=== PATIENT | female | born 1980 | race Caucasian/White ===

== ENCOUNTER → 2018-07-23 09:25 | Outpatient (CLI) | payer OTHER, SELFPAY ==
[2018-07-23 09:58] LABS: Absolute Lymphocyte Count 1.74 X10^3/ul (0.83-4.51); Basophil# 0.02 X10^3/uL; Basophil% 0.2 % (0-1); Eosinophil# 0.22 X10^3/uL; Eosinophils% 2.6 % (0-5); Hematocrit 39.9 % (37-47); Hemoglobin 12.9 g/dl (12.0-15.0); Lymphocyte # 1.74 X10^3/ul (4.0); Lymphocyte % 20.4 % (19-41); Mean Corp Hgb Conc 32.3 g/gl (32-36); Mean Corpuscular Hgb 27.9 pg (27.0-32.0); Mean Corpuscular Volume 86.4 fL (81-99); Mean Platelet Vol. 9.9 fl (6.2-12.0); Monocyte# 0.58 X10^3/uL; Monocyte% 6.8 % (0-10); Neutrophil # 5.95 X10^3/uL (2.7-7.7); Neutrophil % 69.9 % (47-70); Platelet Count 230 K/mm3 (150-450); RBC Distribution Width CV 15.5 % (11.6-14.6); RBC Distribution Width SD 49.1 fl (35.1-43.9); Red Blood Count 4.62 M/mm3 (4.2-5.4); White Blood Count 8.5 K/mm3 (4.4-11.0)
[2018-07-23 09:59] LABS: POSITIVE COUNT NO; POSITIVE DIFFERENTIAL NO; POSITIVE MORPHOLOGY NO
[2018-07-23 10:21] LABS: Glucose Challenge Gest 1H 50g 173 mg/dL (70-140)
[2018-07-23 14:53] LABS: Chlamydia Trachomatis by PCR Negative (Negative); Neisserai gonorrhoeae by PCR Negative (Negative); Probe Check PASS; Sample Adequacy Control PASS; Specimen Processing Control PASS
[2018-07-24 11:25] LABS: HEPATITIS B SURFACE AG Negative (Negative)
[2018-07-24 13:02] LABS: HIV - WCH Non-Reactive (Nonreactive); Rubella IgG 99.4 IU/mL
[2018-07-26 02:29] LABS: Rapid Plasmin Reagin (RPR) NONREACTIVE (NONREACTIVE)
[2018-07-26 13:00] LABS: HPV APTIMA, High Risk Negative (Negative)
== END ==
PROVIDERS: Visit Provider Obstetrics & Gynecology
DX: Z34.90 Encounter for supervision of normal pregnancy, unspecified, unspecified trimester (principal); Z12.4 Encounter for screening for malignant neoplasm of cervix
CPT/HCPCS: 36415; 82950; 85025; 86592; 86703; 86762; 86850; 86900; 87086; 87340; 87491; 87591; 88175; G0145

== ENCOUNTER → 2018-08-09 07:53 | Outpatient (CLI) | payer OTHER, SELFPAY ==
--- NOTE | 2018-08-09 07:55 | US_ITS ---
STUDY: FIRST TRIMESTER OBSTETRICAL ULTRASOUND REASON FOR EXAM: Female, 38 years old. dating. LMP: May 25, 2018. TECHNIQUE: Transvaginal PRIOR ULTRASOUND: None. FINDINGS: There is visualization of a single gestational sac in a normal intrauterine position. The mean sac diameter (MSD) measures 3.9 mm, indicating an estimated gestational age (EGA) of 9 weeks, 3 days. The gestational sac shape is within normal limits. There is a visualized yolk sac. The yolk sac measures 3.8 mm. The placenta is non-visualized. There is visualization of a live embryo. The crown-rump length (CRL) measures 2.25 cm, indicating an estimated gestational age (EGA) of 9 weeks, 0 days. There is demonstrated cardiac activity with a heart rate of 164 bpm. The estimated gestation age (EGA) by LMP is 10 weeks, 6 days. The estimated date of delivery (ANTONIA) by LMP is March 01, 2019. The estimated gestation age (EGA) by US is 9 weeks, 2 days. The estimated date of delivery (ANTONIA) by US is March 12, 2019. The uterus measures 10.4 cm x 8.5 cm by 5.9 cm. There is no demonstrated uterine fibroid. The cervix is closed. A small hypoechoic region is seen adjacent to the gestational sac suggestive of a small subchorionic bleed. The right ovary measures 3.4 cm x 2.1 cm x 2.0 cm. There is no right ovarian cyst. There is no visualized right adnexal mass or complex lesion. The left ovary measures 2.7 cm x 1.6 cm x 1.5 cm. There is no left ovarian cyst. There is no visualized left adnexal mass or complex lesion. There is no fluid in the cul de sac. US/Transvaginal w/Preg US IMPRESSION: Single live intrauterine gestation with a mean gestational age of 9 weeks. Findings suggestive of a small subchorionic bleed. Electronically Signed: Jack Daniel MD at 15:50 EDT Tel [phone], Service support ,
== END ==
PROVIDERS: Referring Provider Obstetrics & Gynecology; Visit Provider Obstetrics & Gynecology
DX: Z36.89 Encounter for other specified antenatal screening (principal)
CPT/HCPCS: 76817

== ENCOUNTER → 2018-08-09 08:46 | Outpatient (CLI) | payer OTHER, SELFPAY ==
[2018-08-09 09:31] LABS: Glucose GTT-Gestation. Fasting 97 mg/dL (<105)
[2018-08-09 10:32] LABS: Glucose GTT-Gestational 1 Hr 190 mg/dL (<190)
[2018-08-09 12:41] LABS: Glucose GTT-Gestational 3 Hr 94 L (<145)
[2018-08-09 12:41] LABS: Glucose GTT-Gestational 2 Hr 130 mg/dL (<165)
== END ==
PROVIDERS: Referring Provider Obstetrics & Gynecology; Visit Provider Obstetrics & Gynecology
DX: Z34.90 Encounter for supervision of normal pregnancy, unspecified, unspecified trimester (principal)
CPT/HCPCS: 36415; 82951; 82952

== ENCOUNTER → 2018-08-21 16:06 | Outpatient (CLI) | payer OTHER, SELFPAY ==
[2018-09-16 16:36] VITALS: BMI 42.8
--- OUTSIDE RECORDS SUMMARY | 2018-12-07 00:08 | XMS RPT_ITS ---
:1980 Author Organization OHIP Support Name Relationship Address Phone ELIO MCKEON Unavailable [address] [place] [address] S Unavailable Unavailable Unavailable ELIO MCKEON Unavailable Unavailable Unavailable ELIO MCKEON Unavailable [address] + [address] [place] [address] S Unavailable Unavailable Unavailable ELIO MCKEON Unavailable [address] + [address] [place] [address] S Unavailable Unavailable Unavailable ELIO MCKEON Unavailable [address] + [address] [place] [address] S Unavailable Unavailable Unavailable ELIO MCKEON Unavailable [address] + [address] [place] [address] S Unavailable Unavailable Unavailable ELIO MCKEON Unavailable [address] + [address] [place] [address] S Unavailable Unavailable Unavailable ELIO MCKEON Unavailable [address] + [address] [place] [address] S Unavailable Unavailable Unavailable ELIO MCKEON Unavailable [address] + [address] [place] [address] S Unavailable Unavailable Unavailable ELIO MCKEON Unavailable [address] + [address] [place] [address] S Unavailable Unavailable Unavailable ELIO MCKEON Unavailable [address] + [address] [place] [address] S Unavailable Unavailable Unavailable Care Team Providers Name Role Phone KEARA STILES Attending Unavailable BRE ELLIOTT Referring Unavailable NO PRIMARY CARE, Primary Care Unavailable Marry Patiño Attending Unavailable Primay Care Physicia, No Referring Unavailable Bre Elliott Attending Unavailable Primay Care Physicia, No Referring Unavailable Marcanthony, Bre Attending Unavailable Marcanthony, Bre Referring Unavailable Primay Care Physicia, No Primary Care Unavailable Marcanthony, Bre Attending Unavailable Marcanthony, Bre Referring Unavailable Primay Care Physicia, No Primary Care Unavailable Marcanthony, Bre Attending Unavailable Marcanthony, Bre Referring Unavailable Primay Care Physicia, No Primary Care Unavailable Amilcar Steele Attending Unavailable Primay Care Physicia, No Referring Unavailable Marcanthony, Bre Attending Unavailable Primay Care Physicia, No Referring Unavailable Marcanthony, Bre Attending Unavailable Marcanthony, Bre Referring Unavailable Primay Care Physicia, No Primary Care Unavailable Marcanthony, Bre Attending Unavailable Primay Care Physicia, No Referring Unavailable [place], Marry Attending Unavailable Primay Care Physicia, No Primary Care Unavailable PROBLEMS PROBLEMS DATE TYPE CONDITION / CODE ATTENDING STATUS SOURCE 10/24/2018 Unknown O09.91 - [place] evans Active [place] Supervision of [facility] high risk [facility] , Repository unspecified, first trimester / O09.91(ICD-10) 10/24/2018 Unknown Z3A.20 - 20 weeks Kaylyn, Marry Active [place] gestation of [facility] / Hospital Z3A.20(ICD-10) Repository 10/24/2018 Unknown O99.810 - Abnormal KaylynMarry evans Active [place] glucose [facility] / Repository O99.810(ICD-10) 10/24/2018 Unknown Z36.9 - Encounter [place] evans Active [place] for [facility] screening, Hospital unspecified / Repository Z36.9(ICD-10) 10/24/2018 Unknown Z68.41 - Body mass Kaylyn Marry Active [place] index (BMI) [facility] 40.0-44.9, adult / Hospital Z68.41(ICD-10) Repository 09/16/2018 Unknown Z3A.12 - 12 weeks Marcanthony, Active [place] gestation of [facility] / Hospital Z3A.12(ICD-10) Repository 08/13/2018 Unknown Z34.90 - Encounter Marcanthony, Active [place] for supervision of [facility] normal , Hospital unspecified, Repository unspecified trimester / Z34.90(ICD-10) 08/09/2018 Unknown N92.6 - Irregular Marcanthony, Active [place] menstruation, [facility] unspecified / Hospital N92.6(ICD-10) Repository 07/23/2018 Unknown Z3A.08 - 8 weeks Cristian, Active [place] gestation of [facility] / Hospital Z3A.08(ICD-10) Repository PROCEDURES PROCEDURES No Procedure Records FoundRESULTS RESULTS ADJUSTMENT CLERK OFFICE VISIT Observed: 10/24/2018 Status: F Source: [place] REPORT 11:08 AM [facility] REPOSITORY [facility] [address] [place] [address] OFFICE VISIT Date of Service: 10/24/18 MR#: [id number] Acct: [id number] Name: ERASMO MCKEON Rep #: [id number] : 1980 Provider: SONJA Patiño Age/Sex: 38/F Location: [facility] Status: Signed Intake Vital Signs10/24/18 Height 5 ft 10/24/18 Weight: 220 lb 10/24/18 Body Mass Index (BMI) 43.0 10/24/18 Blood Pressure 118/80 Intake Visit Reasons: 18 weeks Chief Complaint: est ob Well Service Floorperson Required: No Is patient in pain?: No Allergies No Known Allergies Allergy (Verified 10/24/18 10:35) Medications vitamin#30 30 mg iron-10 mg iron-folic acid 1 mg- omg3 capsule cap PO cap 09/16/18 [History Confirmed 10/24/18] Last Menstral Period: 05/25/18 Zika: Zika virus screening: Negative : No PFSH PFSH Medical History benign neck tumor (Acute) Surgical History History of tonsillectomy (Acute) Status post wrist surgery (Acute) Family History Unknown Cancer skin non hodgkins lymphoma lung Grandfather Diabetes Other Hypertension Social History Smoking Status: Never smoker alcohol intake: never substance use type: does not use caffeine: Yes what type of physical activity do you participate in: walking seatbelt use: always do you feel safe at home: Yes additional social history: 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 OB Visit ANTONIA Calculator Estimated Delivery Date 03/12/19 Based on Ultrasound Date 08/09/18 Current WG 20w 1d Number 1 Expected Delivery Route/Plan Specific Issue/Plans flu vaccine: declined tdap vaccine: [] rhogam: [] LARC form signed: [] labor support person: Stephane pain management: [] cut cord/dad catch: [] : [] PP control planned: [] discussed possible routes of delivery and associated risks: [] special requests: [] Initial Weight: 218 lb Date Weight BP Urine PrFHR FuHt Pres MoCTX DilationFetal StVisit NoProviderComments E ot v te [place] G Effac lucose ed Visit Notes Visit Date: 10/24/18 No VB, LOF. Doing well. Marry Patiño NP-C on 10/24/18 Visit Date: 09/16/18 n ovb cramping Bre Elliott MD on 09/16/18 Visit Date: 08/21/18 no vb cramping. Bre Elliott MD on 08/21/18 ACOG First Trimester First Trimester: Desire for , Alcohol, Tobacco Cessation, Illicit/Recreational Drug/Substance Use, Intimate Partner Violence, Barriers to care, Unstable Housing, Communication Barriers, Environmental/Work Hazards, Anticipated Course of Care, Toxoplasmosis Precations, Use of Any medications, Sexual activity, Exercise, Dental Care, Sauna/Hot tub use, Seat Belt use, Childbirth classes/Hospital facilities, , Travel, Indications for US and Screening for Aneuploidy Diagnostics Diagnostics Labs Blood Type A POSITIVE 07/23/18 Antibody Screen NEGATIVE 07/23/18 Hct 39.9 % (37-47) 07/23/18 Hgb 12.9 g/dl (12.0-15.0) 07/23/18 Pap Smear Negative 02/13/17 Obstetrics Ultrasound 08/09/18 Rubella IgG Antibody 99.4 IU/mL 07/23/18 RPR NONREACTIVE (NONREACTIVE) 07/23/18 Hep Bs Antigen Negative (Negative) 07/23/18 Chlam trachomat DNA PCR Negative (Negative) 07/23/18 N.gonorrhoeae DNA (PCR) Negative (Negative) 07/23/18 Glucose 1 Hr 50 gm 173 mg/dL (70-140) H 07/23/18 Miscellaneous Test 09/27/18 Details: HIV: Urine Culture: Sequential Screen: NIPT Screen: Results [id number] Office Urine Glucose Negative Last Edit by Emily Jin on 10/24/18 10:42 Office Urine Protein Negative Last Edit by Emily Jin on 10/24/18 10:42 Assessment AND Plan Problems 1. Supervision of high risk in first trimester O09. PRR ANTONIA 03/12/19 boy [place] Elio 2. 20 weeks gestation of Z3A.20 NIPT low risk. carrier screening declined. plan NTD screening. 3. Advanced maternal age (AMA) in genetic counseling discussed, plan growth scan at 36 weeks 4. Abnormal glucose affecting O99.810 normal 3 hour gtt. 1 elevated value. she is wanting to intermittently check blood sugars. 5. screening encounter Z36.9 NIPT low risk 6. BMI 40.0-44.9, adult Z68.41 encouraged weight loss. growth us after 32 weeks, nsts after 36 Plan Orders placed: none Completed MFM anatomy US today Reviewed of labor precautions, movement/kick counts ACOG trimester education reviewed and updated See problem list details for updated plan of care Gestational age appropriate handout given RTO: 4 weeks Orders Orders: Coding Level of Care Code OB Routine Diagnoses Supervision of high risk in first trimester O Trimester: first trimester 20 weeks gestation of Z3A.20 Weeks of gestation: 20 weeks Advanced maternal age (AMA) in Abnormal glucose affecting O99.810 screening encounter Z36.9 BMI 40.0-44.9, adult Z68.41 10/24/18 1108 <Electronically signed by Marry MIRANDA> Date Marry MIRANDA Cosigner Signature: Date (if applicable) CC: MISCELLANEOUS LAB Collected: 09/27/2018 Status: F Source: [place] PROCEDURE 5:53 PM [facility] REPOSITORY Order Comment: Comments: [id number] MSAFP Test(s) Ordered: [id number] MSAFP TYPE CODE TESTS RESULT OUT OF RANGE REFERENCE UNITS LAB L801.1541 Normal [facility] [place] Result Comment: TEST RESULT UNITS REFERENCE INTERVAL AFP, Serum, Open Spina Bifida Results Report Test Results: *Screen Negative* Gest. Age on Collection Date 16.3 weeks Gestat. Age Based On Ultrasound 16.3 on 09/27/2018 Recalculations are not recommended when gestational dating by LMP and ultrasound are within 10 days. [age] ANTONIA [age] yr Race Weight 219 lbs Insulin Dep Diabetes No Multiple Gestation No AFP Value 27.6 ng/mL AFP MoM 1.02 OSBR Risk 1 [place] [id number] Interpretation Interpretation: Screen Negative This result is screen negative for OSB. The AFP MoM calculated is based on the gestational age provided. MS-AFP can identify up to 80% of open neural tube defects. Closed neural tube defects and some open defects may not be detected by this test. This test does not screen for Down Syndrome or Trisomy 18. If screening for Down Syndrome or Trisomy 18 is desired, contact Genetic Customer Services to discuss available options. The [employer] recommends amniocentesis be offered to women age 35 and older. Comment: Annie Cole, Ph.D., [facility] Principal Genetics Casing Trimmer References: Available Upon Request. Multiples Of Median Cutoffs For AFP Elevations Partida 2.5 Black 2.8 IDD 2.0 Twins 4.5 Abbreviation Definitions IDD - Insulin Dep Diabetes OSBR - Open Spina Bifida Risk For further inquiries contact [facility] Genetics Services at [phone]. TESTING PERFORMED AT [facility]. ORIGINAL REPORT ON FILE IN LAB CONTAINS ADDITIONAL TEST SITE INFORMATION. Performed By: #### L801.1541 #### [facility] [address] [place], [address] ADJUSTMENT CLERK OFFICE VISIT Observed: 09/16/2018 Status: F Source: [place] REPORT 5:00 PM [facility] REPOSITORY [facility] [address] [place] [address] OFFICE VISIT Date of Service: 09/16/18 MR#: [id number] Acct: [id number] Name: ERASMO MCKEON Rep #: [id number] : 1980 Provider: Bre Elliott MD Age/Sex: 38/F Location: [facility] Status: Signed Intake Vital Signs09/16/18 Height 5 ft 09/16/18 Weight: 219 lb 4 oz 09/16/18 Body Mass Index (BMI) 42.8 09/16/18 Blood Pressure 102/80 Intake Visit Reasons: OB Chief Complaint: est ob Well Service Floorperson Required: No Is patient in pain?: No Allergies No Known Allergies Allergy (Verified 09/16/18 16:36) Medications vitamin#30 30 mg iron-10 mg iron-folic acid 1 mg- omg3 capsule cap PO cap 09/16/18 [History Confirmed 09/16/18] Last Menstral Period: 05/25/18 Zika: Zika virus screening: Negative : No PFSH PFSH Medical History benign neck tumor (Acute) Surgical History History of tonsillectomy (Acute) Status post wrist surgery (Acute) Family History Unknown Cancer skin non hodgkins lymphoma lung Grandfather Diabetes Other Hypertension Social History Smoking Status: Never smoker alcohol intake: never substance use type: does not use caffeine: Yes what type of physical activity do you participate in: walking seatbelt use: always do you feel safe at home: Yes additional social history: 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 OB Visit ANTONIA Calculator Estimated Delivery Date 03/12/19 Based on Ultrasound Date 08/09/18 Current WG 14w 5d Number 1 Expected Delivery Route/Plan Specific Issue/Plans flu vaccine: declined tdap vaccine: [] rhogam: [] LARC form signed: [] labor support person: [] pain management: [] cut cord/dad catch: [] : [] PP control planned: [] discussed possible routes of delivery and associated risks: [] special requests: [] Initial Weight: 218 lb Date Weight BP Urine PrFHR FuHt Pres MoCTX DilationFetal StVisit NoProviderComments E ot v te [place] G Effac lucose ed Visit Notes Visit Date: 09/16/18 n ovb cramping Bre Elliott MD on 09/16/18 Visit Date: 08/21/18 no vb cramping. Bre Elliott MD on 08/21/18 ACOG First Trimester First Trimester: Desire for , Alcohol, Tobacco Cessation, Illicit/Recreational Drug/Substance Use, Intimate Partner Violence, Barriers to care, Unstable Housing, Communication Barriers, Environmental/Work Hazards, Anticipated Course of Care, Toxoplasmosis Precations, Use of Any medications, Sexual activity, Exercise, Dental Care, Sauna/Hot tub use, Seat Belt use, Childbirth classes/Hospital facilities, , Travel, Indications for US and Screening for Aneuploidy Diagnostics Diagnostics Labs Blood Type A POSITIVE 07/23/18 Antibody Screen NEGATIVE 07/23/18 Hct 39.9 % (37-47) 07/23/18 Hgb 12.9 g/dl (12.0-15.0) 07/23/18 Pap Smear Negative 02/13/17 Obstetrics Ultrasound 08/09/18 Rubella IgG Antibody 99.4 IU/mL 07/23/18 RPR NONREACTIVE (NONREACTIVE) 07/23/18 Hep Bs Antigen Negative (Negative) 07/23/18 Chlam trachomat DNA PCR Negative (Negative) 07/23/18 N.gonorrhoeae DNA (PCR) Negative (Negative) 07/23/18 Glucose 1 Hr 50 gm 173 mg/dL (70-140) H 07/23/18 Miscellaneous Test Pending 08/21/18 Details: HIV: Urine Culture: Sequential Screen: NIPT Screen: Results [email or web address] Office Urine Glucose Negative Last Edit by Emily Jin on 09/16/18 16:41 Office Urine Protein Negative Last Edit by Emily Jin on 09/16/18 16:41 Assessment AND Plan Problems 1. BMI 40.0-44.9, adult Z68.41 encouraged weight loss. growth us after 32 weeks, nsts after 36 2. Abnormal glucose affecting O99.810 normal 3 hour gtt. 1 elevated value. she is wanting to intermittently check blood sugars. 3. Advanced maternal age (AMA) in genetic counseling discussed, plan growth scan at 36 weeks 4. 12 weeks gestation of Z3A.12 NIPT low risk. carrier screening declined. plan NTD screening. 5. Supervision of high risk in first trimester O PRR ANTONIA 03/12/19 boy [place]itra Elio Plan movement and labor precautions reviewed. ACOG trimester education reviewed and updated. see problem list details for updated plan management information and see below for orders placed at this visit. GA appropriate handout given. Orders Orders: Coding Level of Care Code OB Routine Diagnoses BMI 40.0-44.9, adult Z68.41 Abnormal glucose affecting O99.810 Advanced maternal age (AMA) in 12 weeks gestation of Z3A.12 Weeks of gestation: 12 weeks Supervision of high risk in first trimester O. Trimester: first trimester 09/16/18 1700 <Electronically signed by Bre Elliott MD> Date Bre Elliott MD Cosigner Signature: Date (if applicable) CC: ADJUSTMENT CLERK OFFICE VISIT Observed: 08/21/2018 Status: F Source: [place] REPORT 12:12 PM [facility] [address] [place] [address] OFFICE VISIT Date of Service: 08/21/18 MR#: [id number] Acct: [id number] Name: ERASMO MCKEON Rep #: [id number] : 1980 Provider: Bre Elliott MD Age/Sex: 38/F Location: [facility] Status: Signed Intake Vital Signs08/21/18 Height 5 ft 08/21/18 Weight: 218 lb 6 oz 08/21/18 Body Mass Index (BMI) 42.6 08/21/18 Blood Pressure 130/82 H Intake Visit Reasons: OB Chief Complaint: est ob Well Service Floorperson Required: No Is patient in pain?: No Allergies No Known Allergies Allergy (Verified 08/21/18 08:02) Last Menstral Period: 05/25/18 Zika: Zika virus screening: Negative : No PFSH PFSH Medical History benign neck tumor (Acute) Surgical History History of tonsillectomy (Acute) Status post wrist surgery (Acute) Family History Unknown Cancer skin non hodgkins lymphoma lung Grandfather Diabetes Other Hypertension Social History Smoking Status: Never smoker alcohol intake: never substance use type: does not use caffeine: Yes what type of physical activity do you participate in: walking seatbelt use: always do you feel safe at home: Yes additional social history: 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 OB Visit ANTONIA Calculator Estimated Delivery Date 03/12/19 Based on Ultrasound Date 08/09/18 Current WG 11w 0d Number 1 Expected Delivery Route/Plan Specific Issue/Plans flu vaccine: willing tdap vaccine: [] rhogam: [] LARC form signed: [] labor support person: [] pain management: [] cut cord/dad catch: [] : [] PP control planned: [] discussed possible routes of delivery and associated risks: [] special requests: [] Initial Weight: 218 lb Date Weight BP Urine PrFHR FuHt Pres MoCTX DilationFetal StVisit NoProviderComments E ot v te [place] G Effac lucose ed Visit Notes Visit Date: 08/21/18 no vb cramping. Bre Elliott MD on 08/21/18 ACOG First Trimester First Trimester: Desire for , Alcohol, Tobacco Cessation, Illicit/Recreational Drug/Substance Use, Intimate Partner Violence, Barriers to care, Unstable Housing, Communication Barriers, Environmental/Work Hazards, Anticipated Course of Care, Toxoplasmosis Precations, Use of Any medications, Sexual activity, Exercise, Dental Care, Sauna/Hot tub use, Seat Belt use, Childbirth classes/Hospital facilities, , Travel, Indications for US and Screening for Aneuploidy Diagnostics Diagnostics Labs Blood Type A POSITIVE 07/23/18 Antibody Screen NEGATIVE 07/23/18 Hct 39.9 % (37-47) 07/23/18 Hgb 12.9 g/dl (12.0-15.0) 07/23/18 Pap Smear Negative 02/13/17 Obstetrics Ultrasound 08/09/18 Rubella IgG Antibody 99.4 IU/mL 07/23/18 RPR NONREACTIVE (NONREACTIVE) 07/23/18 Hep Bs Antigen Negative (Negative) 07/23/18 Chlam trachomat DNA PCR Negative (Negative) 07/23/18 N.gonorrhoeae DNA (PCR) Negative (Negative) 07/23/18 Glucose 1 Hr 50 gm 173 mg/dL (70-140) H 07/23/18 Miscellaneous Test Pending 08/21/18 Details: HIV: Urine Culture: Sequential Screen: NIPT Screen: Results [id number] Office Urine Glucose Negative Last Edit by Chiquis Stringer on 08/21/18 08:05 Office Urine Protein Negative Last Edit by Chiquis Stringer on 08/21/18 08:05 Assessment AND Plan Problems 1. Abnormal glucose affecting O99.810 normal 3 hour gtt. 1 elevated value. she is wanting to intermittently check blood sugars. 2. Advanced maternal age (AMA) in genetic counseling discussed, plan growth scan at 36 weeks 3. 8 weeks gestation of Z3A.08 NIPT ordered. carrier screening declined. plan NTD screening. 4. Supervision of high risk in first trimester O09.91 PRR ANTONIA 03/12/19 Elio 5. BMI 40.0-44.9, adult Z68.41 encouraged weight loss. growth us after 32 weeks, nsts after 36 Plan ACOG trimester education reviewed and updated. see problem list details for updated plan management information and see below for orders placed at this visit. [place] appropriate handout given. Orders Orders: Coding Level of Care Code OB Routine Diagnoses Abnormal glucose affecting O99.810 Advanced maternal age (AMA) in 8 weeks gestation of Z3A.08 Weeks of gestation: 8 weeks Supervision of high risk in first trimester O09.91 Trimester: first trimester BMI 40.0-44.9, adult Z68.41 08/21/18 1212 <Electronically signed by Bre Elliott MD> Date Bre Elliott MD Cosign Signature: Date (if applicable) CC: MISCELLANEOUS LAB Collected: 08/21/2018 Status: F Source: [place] PROCEDURE 8:57 AM [facility] REPOSITORY Order Comment: Comments: SEND OUT [place] Test(s) Ordered: SEND OUT [place] TYPE CODE TESTS RESULT OUT OF RANGE REFERENCE UNITS LAB L801.1541 Normal [facility] [place] Result Comment: Sent directly to testing facility per ordering physician. @ 10/01/18 1525 MYOUNG Performed By: #### L801.1541 #### [place] [facility] [address] [place], [address] URGENT CARE VISIT Observed: 08/14/2018 Status: F Source: [place] REPORT 6:03 PM [facility] RE[facility] [address] [place] [address] OFFICE VISIT Date of Service: 08/14/18 MR#: [id number] Acct: [id number] Name: ERASMO MCKEON Rep #: [id number] : 1980 Provider: Amilcar LUNDBERG Age/Sex: 38/F [place] [facility] Status: Signed Intake Vital Signs08/14/18 Height 5 ft Intake Visit Reasons: ears clogged up Chief Complaint: Bilateral ear pressure Allergies No Known Allergies Allergy (Unverified 08/14/18 17:34) Medications amoxicillin 500 mg capsule 1,000 mg PO BID 10 Days #40 cap 08/14/18 [Rx Confirmed 08/14/18] Patient : Yes PFSH Medical History benign neck tumor (Acute) Surgical History History of tonsillectomy (Acute) Status post wrist surgery (Acute) Family History Unknown Cancer skin non hodgkins lymphoma lung Grandfather Diabetes Other Hypertension Social History Smoking Status: Never smoker alcohol intake: never substance use type: does not use caffeine: Yes what type of physical activity do you participate in: walking seatbelt use: always do you feel safe at home: Yes additional social history: 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 Patient states she has been taking rgag-syw-qkakijx Benadryl as well as Sudafed to assist with symptoms noting less and less relief particularly over the last several days using these lnri-dws-qweylhe medications. She notes no complaints of fever, chills, sweats, rash, cough, chest pain/shortness of breath. She does note she is 11 weeks gestation and is having an essentially asymptomatic . She does note x1 emesis several days ago which caused a subconjunctival hemorrhage in the right eye; she notes no visual acuity changes. She notes no other associated symptoms no other alleviating or aggravating factors. ROS Const Constitutional: No other (ROS negative x10 other than as noted above) Exam Const General: cooperative, healthy appearing, no acute distress, comfortable Nutritional Appearance: average body habitus Orientation: alert, awake, oriented x3 HENMT Head: normal to inspection Ears: hearing grossly normal bilaterally, external ears normal, TM's normal bilaterally, EAC's normal Nose: external nose normal, nares normal, septum normal, no nasal discharge Face and sinus: normal facial exam, face symmetric, sinus tenderness frontal Mouth: oral mucosae normal, lip normal, oropharynx normal, tongue normal Teeth and gingiva: gingiva normal, dentition normal Throat: uvula midline, tonsils normal, posterior oropharynx normal, no postnasal drainage Eyes General: appearance normal, both eyes and all related structures (except OD subconjunctival hemorrhage at 9 0'clock; neg limbus AND no hyphema) Neck Neck: normal visual inspection, full ROM, no lymphadenopathy, no meningeal signs, supple Neck mass: No Thyroid: thyroid normal Lymphatic: no lymphadenopathy noted Chest Chest palpation AND inspection: normal inspection of the chest Resp Effort AND Inspection: normal respiratory effort, able to speak in complete sentences Auscultation: Bilateral: Clear to Auscultation Cardio Palpation: normal PMI Rate: regular rate Rhythm: regular rhythm Heart Sounds: S1 normal, S2 normal, no gallops, no murmurs, no rubs Pulses: radial pulses present GI Inspection: normal to inspection Palpation: soft, no hepatosplenomegaly Skin General: no rashes or lesions noted Neuro General: alert, awake, oriented x3, gait normal Cognition: normal cognition Speech: speech normal Gait: normal gait Motor: muscle tone normal throughout Sensory Exam: no sensory deficits noted Psych Appearance: grossly normal Mental Status: mental status grossly normal Mood: congruent mood Affect: normal affect Speech and Movement: speech and movement normal Attitude: cooperative Thought Process: normal Thought Content: normal Judgment: judgment good Assessment AND Plan Problems 1. Sinusitis J32.9 2. Subconjunctival hemorrhage of right eye H11.31 Plan Amoxicillin as prescribed today. Clear fluids, rest, Tylenol, warm facial compresses as needed as instructed today. Follow-up with PCP in 3-5 days should symptoms not improve, sooner should symptoms worsen or any other concerns develop. Patient states acknowledging understanding all the above. This note was generated with Dragon dictation software. It may contain incorrect words, spelling, and punctuation that were not noted in checking the note before signing. Medications New: Coding Level of Care Code Off vis,est,level 3 Diagnoses Sinusitis J32.9 Subconjunctival hemorrhage of right eye H11.31 08/14/18 1803 <Electronically signed by Amilcar LUNDBERG> Date Amilcar LUNDBERG Cosigner Signature: Date (if applicable) CC: GESTATIONAL GTT 3HR Collected: 08/09/2018 Status: F Source: [place] 100G 8:57 AM [facility] REPOSITORY Order Comment: Is Patient Fasting? Y TYPE CODE TESTS RESULT OUT OF RANGE REFERENCE UNITS LAB L501.0650 <105 mg/dL Normal GLU 97 GTT-FASTING Result Comment: GLUCOSE TOLERANCE TEST FOR Reference Interval GESTATIONAL DIABETES Fasting <105 mg/dL 1 hour <190 mg/dl 2 hour <165 mg/dl 3 hour <145 mg/dl LAB L501.0660 <190 mg/dL Normal GLU GTT- 1HR 190 LAB L501.0670 <165 mg/dL Normal GLU GTT- 2HR 130 LAB L501.0680 <145 L Normal GLU GTT- 3HR 94 Performed By: #### L500.4710 #### [facility] [address] [place], [address] TRANSVAGINAL W/PREG US Observed: 08/09/2018 Status: F Source: [place] 7:55 AM [facility] REPOSITORY [facility] Imaging Services [address] [place] [address] Transvaginal w/Preg US MR#: [id number] Acct: [id number] Name: ERASMO MCKEON Rep #: [id number] : 1980 F 38 From: Jack Daniel MD PCP: Care Physician, No Primary Status: REG CLI Study: Transvaginal w/Preg US Date of Exam: 08/09/18 Exam# [id number] Ordering Dr: Bre Elliott MD STUDY: FIRST TRIMESTER OBSTETRICAL ULTRASOUND REASON FOR EXAM: Female, 38 years old. dating. LMP: May 25, 2018. TECHNIQUE: Transvaginal PRIOR ULTRASOUND: None. FINDINGS: There is visualization of a single gestational sac in a normal intrauterine position. The mean sac diameter (MSD) measures 3.9 mm, indicating an estimated gestational age (EGA) of 9 weeks, 3 days. The gestational sac shape is within normal limits. There is a visualized yolk sac. The yolk sac measures 3.8 mm. The placenta is non-visualized. There is visualization of a live embryo. The crown-rump length (CRL) measures 2.25 cm, indicating an estimated gestational age (EGA) of 9 weeks, 0 days. There is demonstrated cardiac activity with a heart rate of 164 bpm. The estimated gestation age (EGA) by LMP is 10 weeks, 6 days. The estimated date of delivery (ANTONIA) by LMP is March 01, 2019. The estimated gestation age (EGA) by US is 9 weeks, 2 days. The estimated date of delivery (ANTONIA) by US is March 12, 2019. The uterus measures 10.4 cm x 8.5 cm by 5.9 cm. There is no demonstrated uterine fibroid. The cervix is closed. A small hypoechoic region is seen adjacent to the gestational sac suggestive of a small subchorionic bleed. The right ovary measures 3.4 cm x 2.1 cm x 2.0 cm. There is no right ovarian cyst. There is no visualized right adnexal mass or complex lesion. The left ovary measures 2.7 cm x 1.6 cm x 1.5 cm. There is no left ovarian cyst. There is no visualized left adnexal mass or complex lesion. There is no fluid in the cul de sac. US/Transvaginal w/Preg US IMPRESSION: Single live intrauterine gestation with a mean gestational age of 9 weeks. Findings suggestive of a small subchorionic bleed. Electronically Signed: Jack Daniel MD at 15:50 EDT Tel [phone], Service support , CC: No Primary Care Physician; Bre Elliott MD Abseiling Instructor: Signed CT/NG [facility] BY PCR Collected: 07/23/2018 Status: F Source: [place] 12:42 PM [facility] REPOSITORY TYPE CODE TESTS RESULT OUT OF RANGE REFERENCE UNITS LAB L8200.2100 Negative Normal Chlam Negative Trac PCR LAB L8200.2200 Negative Normal NG by Negative PCR Performed By: #### L8200.1999 #### [facility] [address] [place], [place], [address] Observed: 07/23/2018 Status: F Source: [place] CULTURE, URINE 12:42 PM [facility] REPOSITORY Urine Culture Culture exhibits no growth. Performed By: #### M100.0650 #### [facility] [address] [place], [place], [address] CBC W/DIFF, AUTOMATED Collected: 07/23/2018 Status: F Source: [place] 9:29 AM [facility] REPOSITORY TYPE CODE TESTS RESULT OUT OF RANGE REFERENCE UNITS LAB L100.1000 4.4-11.0 K/mm3 Normal WBC 8.5 LAB L100.1200 4.2-5.4 M/mm3 Normal RBC 4.62 LAB L100.1300 12.0-15.0 g/dl Normal HGB 12.9 LAB L100.1400 37-47 % Normal HCT 39.9 LAB L100.1500 81-99 fL Normal MCV 86.4 LAB L100.1600 27.0-32.0 pg Normal MCH 27.9 LAB L100.1700 32-36 g/gl Normal MCHC 32.3 LAB L100.1810 11.6-14.6 % High RDW CV 15.5 LAB L100.1820 35.1-43.9 fl High RDW SD 49.1 LAB L100.1900 150-450 K/mm3 Normal PLT 230 LAB L100.2000 6.2-12.0 fl Normal MPV 9.9 LAB L100.2100 47-70 % Normal NEUT% 69.9 LAB L100.2200 19-41 % Normal LY% 20.4 LAB L100.2300 0-10 % Normal MONO% 6.8 LAB L100.2400 0-5 % Normal EO% 2.6 LAB L100.2500 0-1 % Normal BASO% 0.2 LAB L100.2550 0.0-0.9 % Normal IM GRAN % 0.100 Result Comment: IG% - Immature Granulocytes (promyelocytes, myelocytes and metamyelocytes) > 1% indicates that a LEFT SHIFT is Present. LAB L100.2620 2.0-7.7 X10 3/uL Normal Absolute Neut 6.0 LAB L100.2720 0.83-4.51 X10 3/ul Normal Absolute Lymph 1.74 Performed By: #### L100.0100, B101.7450 #### [facility] [address] [facility] [place], [place], [address] TYPE AND SCREEN Collected: 07/23/2018 Status: F Source: [place] 9:29 AM [facility] REPOSITORY Order Comment: Reason for Type AND Screen/Red Cells: TYPE CODE TESTS RESULT OUT OF RANGE REFERENCE UNITS LAB B10.0800 A Normal BLOOD TYPE GEL POSITIVE LAB B100.4000 Normal Antibody NEGATIVE Screen Performed By: #### L100.0100, B101.7450 #### [facility] [address] [place], [place], [address] GLUCOSE CHALLENGE GEST Collected: 07/23/2018 Status: F Source: [place] 1H 50G 9:29 AM [facility] REPOSITORY Order Comment: PT SHOWED UP DOWN HERE @ 6735 TO BE REGISTERED DRAWN @ 9972. TYPE CODE TESTS RESULT OUT OF RANGE REFERENCE UNITS LAB L501.0250 70-140 mg/dL High GLU GEST 173 50g 1H Performed By: #### L501.0250 #### [facility] [address] [place], [place], [address] HEPATITIS B SURFACE Collected: 07/23/2018 Status: F Source: [place] AG 9:29 AM [facility] REPOSITORY TYPE CODE TESTS RESULT OUT OF RANGE REFERENCE UNITS LAB L3100.0400 Negative Normal HB Negative SURF AG Result Comment: Performed at: [facility] [id number] Jacket Preparer: Yifan Flores PhD, Phone: [phone] Performed By: #### L3100.0390 #### [facility] (refer to report for specific site) refer to report for address and phone number #### L509.4000, L3890.6005, L700.5000 #### [facility] [facility] [place], [address] RUBELLA IGG Collected: 07/23/2018 Status: F Source: [place] 9:29 AM [facility] REPOSITORY TYPE CODE TESTS RESULT OUT OF RANGE REFERENCE UNITS LAB L509.4000 IU/mL Normal Rubella IgG 99.4 Result Comment: Antibody results Interpretation of Immune Status < 5 IU/ml Presumed Non-immune 5 - < 10 IU/ml Equivocal > or = 10 IU/ml Presumed Immune Performed By: #### L3100.0390 #### [facility] (refer to report for specific site) refer to report for address and phone number #### L509.4000, L3890.6005, L700.5000 #### [facility] [address] [place] [address]. [place], [address] HIV - [facility] Collected: 07/23/2018 Status: F Source: [place] 9:29 AM [facility] REPOSITORY TYPE CODE TESTS RESULT OUT OF RANGE REFERENCE UNITS LAB L3890.6005 Nonreactive Normal HIV - [facility] Non-Reactive Performed By: #### L3100.0390 #### [facility] (refer to report for specific site) refer to report for address and phone number #### L509.4000, L3890.6005, L700.5000 #### [facility] [address] [place] [address]. [place], [address] RAPID PLASMIN REAGIN Collected: 07/23/2018 Status: F Source: [place] (RPR) 9:29 AM [facility] REPOSITORY TYPE CODE TESTS RESULT OUT OF REFERENCE UNITS RANGE LAB L700.5000 NONREACTIVE NONREACTIVE Normal RPR Performed By: #### L3100.0390 #### [facility] (refer to report for specific site) refer to report for address and phone number #### L509.4000, L3890.6005, L700.5000 #### [facility] [address] [place], [address] ADJUSTMENT CLERK OFFICE VISIT Observed: 07/23/2018 Status: F Source: [place] REPORT 9:04 AM [facility] REPOSITORY [facility] [address] [place] [address] OFFICE VISIT Date of Service: 07/23/18 MR#: [id number] Acct: [id number] Name: ERASMO MCKEON Rep #: [id number] : 1980 Provider: Bre Elliott MD Age/Sex: 38/F Location: [facility] Status: Signed Intake Vital Signs07/23/18 Height 4 ft 11 in 07/23/18 Weight: 220 lb 07/23/18 Body Mass Index (BMI) 44.4 07/23/18 Blood Pressure 130/90 Intake Visit Reasons: NOB - LMP 05/25 Chief Complaint: NEW OB Well Service Floorperson Required: No Is patient in pain?: No Allergies No Known Allergies Allergy (Unverified 07/23/18 08:07) Medications mecobalamin (vitamin B12) 1,000 mcg disintegrating tablet,sublingual 1,000 mcg SUBLINGUAL DAILY 07/23/18 [History Confirmed 07/23/18] Last Menstral Period: 05/25/18 Zika: Zika virus screening: Positive (Ronny) : No PFSH PFSH Medical History benign neck tumor (Acute) Surgical History History of tonsillectomy (Acute) Status post wrist surgery (Acute) Family History Unknown Cancer skin non hodgkins lymphoma lung Grandfather Diabetes Social History Smoking Status: Never smoker alcohol intake: never substance use type: does not use caffeine: Yes what type of physical activity do you participate in: walking seatbelt use: always do you feel safe at home: Yes additional social history: Elio- works for the [employer] 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 OB Visit ANTONIA Calculator Estimated Delivery Date 03/01/19 Based on LMP (certain) 05/25/18 Current WG 8w 3d Number 1 Comments: us done and CRL 5.5 mm around 6 weeks fht 118 recommend dating us in 10-14 days Expected Delivery Route/Plan Menstrual History Last Menstral Period: 05/25/18 Reported LMP: definite Normal amount/duration: Yes On hormonal BC at conception: No Antepartum Record Genetic Screening: Congenital Heart Defect: Other, Neural Tube Defect: Other, Hemoglobinopathy Or Carrier: Other, Cystic Fibrosis: Other, Chromosome Abnormality: Other, Faizan-Sachs: Other, Hemophilia: Other, Intellectual Disability/Autism: Other, Recurrent Loss/Stillbirth: Other, Other Structural Defect: Other, Other Genetic Disease: Other, Maternal Metabolic Disorder: Other Infection History: Live with someone with TB or Exposed to TB: No, Patient or Partner has history of Genital Herpes: No, Rash or Viral illness since last mentrual period: No, Prior GBS-Infected child: No, History of STD: No, HIV Infection: No, History of Hepatitis: No, Recent travel outside of [place]: No, Concern for Hep exposure: No, Varicella immune: Yes Medical History Medical History: Positive: Diabetes (borderline), Operations/hospitalizations (tonsil), Infertility (pcos), Negative: Hypertension, Heart disease, Auto-immune disorder, Kidney disease/UTI, Neurologic/epilepsy, Psychiatric, Depression/ depression, Hepatitis/liver disease, Varicosities/phlebitis, Thyroid dysfunction, Trauma/domestic violence, History of blood transfusions, D (Rh) Sensitized, Pulmonary (e.g.,TB,Asthma), Seasonal allergies, Drug/latex allergies/reactions, Breast, Certified Pedorthotist surgery, Anesthetic complications, History of abnormal pap, Uterine anomaly/twila, Anti-retroviral treatment, Relevant family history, Other Comments: mthfr ACOG First Trimester First Trimester: Desire for , Alcohol, Tobacco Cessation, Illicit/Recreational Drug/Substance Use, Intimate Partner Violence, Barriers to care, Unstable Housing, Communication Barriers, Environmental/Work Hazards, Anticipated Course of Care, Nurtrition and weight gain, Toxoplasmosis Precations, Use of Any medications, Sexual activity, Exercise, Dental Care, Sauna/Hot tub use, Seat Belt use, Childbirth classes/Hospital facilities, , Travel, Indications for US and Screening for Aneuploidy ROS Const Denies fever(s), Reports system reviewed and no additional complaints, except as docu, Reports fatigue Eyes Reports system reviewed and no additional complaints, except as docu ENT Reports system reviewed and no additional complaints, except as docu Card Denies chest pain, Denies shortness of breath Resp Reports system reviewed and no additional complaints, except as docu, Denies shortness of breath, Denies cough GI Reports nausea, Denies abdominal pain Reports system reviewed and no additional complaints, except as docu Musc Reports system reviewed and no additional complaints, except as docu Skin/Breast Reports system reviewed and no additional complaints, except as docu Neuro Yes system reviewed and no additional complaints, except as docu Psych Reports system reviewed and no additional complaints, except as docu Endo Reports fatigue, Reports system reviewed and no additional complaints, except as docu Exam Const General: healthy appearing, comfortable, no acute distress Orientation: alert [facility] Head: normal to inspection, atraumatic, normocephalic Ears: external ears normal, hearing grossly normal bilaterally Nose: nares normal, external nose normal Mouth: oral mucosae normal Teeth and gingiva: dentition normal Eyes General: appearance normal, both eyes and all related structures Neck Neck: no lymphadenopathy, supple, normal visual inspection Thyroid: thyroid normal Chest Chest palpation AND inspection: normal inspection of the chest Breast inspection: normal inspection of the breasts, normal inspection of the axillae Breast palpation: normal palpation of the breasts, normal palpation of the axillae Resp Effort AND Inspection: normal respiratory effort GI Inspection: normal to inspection Palpation: soft, no hepatosplenomegaly General: bladder normal to palpation External Female Exam: normal external appearance, normal appearance of the urethra Urethra: normal appearance of the urethra Speculum Exam - Vagina: normal appearance of the vagina, normal vaginal discharge Speculum Exam - Cervix: normal appearance of the cervix Bimanual Exam- Vagina AND Uterus: bladder normal to palpation, normal bimanual exam, uterus non-tender, other Bimanual Exam- Adnexa, other: adnexae non-tender Skin General: no rashes or lesions noted Neuro Motor: muscle tone normal throughout, no movement abnormalities noted Extrem General: normal to inspection, full ROM Assessment AND Plan Problems 1. Advanced maternal age (AMA) in genetic counseling discussed, plan growth scan at 36 weeks 2. 8 weeks gestation of Z3A.08 3. Supervision of high risk in first trimester O. ANTONIA husbandThomas 4. BMI 40.0-44.9, adult Z68.41 growth us after 32 weeks, nsts after 36 Plan Patient oriented to practice and discussed care expectations and screenings. ACOG book offered to patient. Discussed routine and specially indicated labs if needed- patient consents to testing. see problem list details for plan information. Optional screening including carrier screenings, neural tube defect screening, sequential screening, and NIPT screening offered to patient and patient chose: considering Orders Orders: Supplemental Info AC book given and patient encouraged to read about nutrition, exercise, weight gain, and food avoidance in . Coding Level of Care Code OB Routine Diagnoses Advanced maternal age (AMA) in 8 weeks gestation of Z3A.08 Weeks of gestation: 8 weeks Supervision of high risk in first trimester O Trimester: first trimester BMI 40.0-44.9, adult Z68.41 07/23/18 0904 <Electronically signed by Bre Elliott MD> Date Bre Elliott MD Cosigner Signature: Date (if applicable) CC: PAP IG HPV APTIMA Collected: 07/23/2018 Status: F Source: [place] 16/18,45 8:10 AM [facility] REPOSITORY Order Comment: CYTOLOGY INFORMATION: - CLINICAL INFORMATION: - DATE LMP/MENOPAUSE: - COLLECTION VIAL: Thin Prep Vial - TIRE SERVICE TECHNICIAN SOURCE: CERVICAL - COLLECTION TECHNIQUE: CX BROOM ONLY Specimen Comment: [id number] Specimen Comment: Source.............Cervix Specimen Comment: Other.............. Specimen Comment: No. of containers..01 ThinPrep Vial TYPE CODE TESTS RESULT OUT OF RANGE REFERENCE UNITS LAB L7400.0800 . Normal DIAGN Comment Result Comment: NEGATIVE FOR INTRAEPITHELIAL LESION AND MALIGNANCY. LAB L7400.0900 . Normal ADEQ Comment Result Comment: Satisfactory for evaluation. Endocervical and/or squamous metaplastic cells (endocervical component) are present. LAB L7400.1400 . Normal PERFORM Comment Result Comment: Fariha Christianson, Sharepoint Application Architect LAB L7400.2575 . Normal TEST METHOD Comment Result Comment: This liquid based ThinPrep(R) pap test was screened with the use of an image guided system. LAB L7400.2600 . Normal . COMM LAB L7400.2700 . Normal PAPSMR Comment Result Comment: The Pap smear is a screening test designed to aid in the detection of premalignant and malignant conditions of the uterine cervix. It is not a diagnostic procedure and should not be used as the sole means of detecting cervical cancer. Both false-positive and false-negative reports do occur. LAB L7400.2760 Negative Normal HPV APTIMA, Negative HR Result Comment: This test detects fourteen high-risk HPV types (16/18/31/33/35/39/45/ 51/52/56/58/59/66/68) without differentiation. Performed at: [address] [id number] Jacket Preparer: Vee Caruso MD, Phone: [phone] [facility] at: [facility] [id number] Jacket Preparer: Vee Caruso MD, Phone: [phone] Performed By: #### L7400.0280 #### [facility] (refer to report for specific site) refer to report for address and phone number ALLERGIES ALLERGIES DATE TYPE / CODE NAME / CODE REACTION SEVERITY SOURCE 10/24/2018 Drug No Known Unknown [facility] [facility] Allergy/4160 Allergies/F00 [facility](SNOMED 0885074(RXNOR Repository CT) M) ENCOUNTERS ENCOUNTERS ADMIT/DISCHARGE ACCOUNT ADMITTING ENCOUNTER LOCATION SOURCE NUMBER CLASS 10/24/2018/10/24/20 [id number] Ambulatory BMSBuilding:Andrew Salas [address] Repository 10/24/2018 [id number] Ambulatory Building:[facility] Repository 09/27/2018 [id number] Ambulatory [facility] ing:LAB.FUTUR Repository E 09/16/2018/09/16/20 [id number] Ambulatory BMSBuilding:B [place] [address] Repository 08/21/2018 [id number] Ambulatory [facility] ing:LAB Repository 08/21/2018/08/21/20 [id number] Ambulatory BMSBuilding:B [place] [address] Repository 08/14/2018/08/14/20 [id number] Ambulatory BMSBuilding:B [place] [address] Repository 08/09/2018 [id number] [facility] ing:LAB Repository 08/09/2018 [id number] [facility] ing:OPUS Repository 07/23/2018 [id number] [facility] ing:LAB Repository 07/23/2018/07/23/20 [id number] Ambulatory BMSBuilding:B [place] [address] Repository PAYERS PAYERS ENCOUNTER GUARANTOR PAYER SUBSCRIBER SOURCE 10/24/2018 ELIO BALLARD A [place] [id number] Insurance:AETNAPolicy SUZANNEDDOB: [facility] BOUCHRA CRUZ Number: [id number] [id number] Repository [address]Hlw: [phone]) Date:9746-23-97TT [phone] ( [place], [place] [address]OL: 10/24/2018 Secondary NOT GIVENUNK [place] Insurance:SELF PAY [facility] Number: Effective Repository Date:2018-09-16 10/24/2018 ERASMO BALLARD [facility] MAYNARDDOB: Insurance:AETNAPolicy MAYNARDDOB: Hospital [id number] Number: [id number] [facility] BOUCHRA MCCARTHY [id number] 4 BOUCHRA MICHAUD [address] Date: [address], [address]Qpw: (4) [place] [address] [phone] () 09/27/2018 ELIO A Primary ELIO A [place] [id number] Insurance:AETNAPolicy MAYNARDDOB: Community BOUCHRA DRUNIT Number: [id number] [id number] Repository [address]Mle: ([phone]) Date:9559-53-35EG [phone] () [id number] [address]OV: 09/27/2018 Secondary NOT GIVENUNK [place] Insurance:SELF PAY [facility]: Effective Repository Date:2018-09-27 09/16/2018 ELIO A Primary ELIO A [place] [id number] Insurance:AETNAPolicy MAYNARDDOB: Community BOUCHRA DRUNIT Number: [id number] [id number] Repository [address]Jid: ([phone]) Date:7686-09-90KU [phone] () [place] [address]RU: 09/16/2018 Secondary NOT GIVENUNK [place] Insurance:SELF PAY [facility] Number: Effective Repository Date:2018-09-16 08/21/2018 ELIO A Primary ELIO A [place] [id number] Insurance:AETNAPolicy MAYNARDDOB: Community BOUCHRA DRUNIT Number: [id number] [id number] Repository [address]Nko: ([phone]) Date:6067-97-15PR [phone] () [address], [place] [address]JW: 08/21/2018 Secondary NOT GIVENUNK [place] Insurance:SELF PAY [facility] Number: Effective Repository Date:2018-08-21 08/21/2018 ELIO A Primary ELIO A [place] [id number] Insurance:AETNAPolicy MAYNARDDOB: Community BOUCHRA DRUNIT Number: [id number] [id number] Repository [address]Qwn: ([phone]) Date:3685-93-22OC [phone] () 787847DXLANRE SANDOVAL [address]DG: 08/21/2018 Secondary NOT GIVENUNK [place] Insurance:SELF PAY [facility] Number: Effective Repository Date:2018-08-21 08/14/2018 ELIO A Primary ELIO A [place] [id number] Insurance:AETNAPolicy MAYNARDDOB: Community BOUCHRA DRUNIT Number: [id number] [id number] Repository [address]Jyc: ([phone]) Date:7929-66-51RM [phone] () [id number] [address]JV: 08/14/2018 Secondary NOT GIVENUNK [place] Insurance:SELF PAY [facility] Number: Effective Repository Date:2018-08-14 08/09/2018 ELIO A Primary ELIO A [place] [id number] Insurance:AETNAPolicy MAYNARDDOB: Community BOUCHRA DRUNIT Number: [id number] [id number] Repository [address]Ech: ([phone]) Date:2599-04-72ZT [phone] () [id number] [place] [place] [phone]: 08/09/2018 Secondary NOT GIVENUNK [place] Insurance:SELF PAY [facility] Number: Effective Repository Date:2018-07-23 08/09/2018 ELIO A Primary ELIO A Maritza [id number] Insurance:AETNAPolicy MAYNARDDOB: Community BOUCHRA DRUNIT Number: [id number] [id number] Repository [address]Vfo: (288) Date:[id number] [phone] (HP) [id number] SANDOVAL [address]IE: 08/09/2018 Secondary NOT GIVENUNK [place] Insurance:SELF PAY [facility] Effective Repository Date:2018-07-23 07/23/2018 ELIO Armendariz Primary ELIO Salas [id number] Insurance:AETNAPolicy MAYNARDDOB: Community BOUCHRA DRUNIT Number: [id number] [id number] Repository [address]Ind: ([phone]) Date:[id number] [phone] () [id number] LANRE NOVOA [address]EC: 07/23/2018 Secondary NOT GIVENUNK [place] Insurance:SELF PAY [facility] Number: Effective Repository Date:2018-07-23 07/23/2018 ELIO Primary ELIO Salas [id number] Insurance:AETNAPolicy MAYNARDDOB: Community BOUCHRA DRUNIT Number: [id number] [id number] Repository [address]Xgy: ([phone]) Date:[id number] [phone] () [id number] SANDOVAL [address]ZC: 07/23/2018 Secondary NOT GIVENUNK Mar[place] Insurance:SELF PAY [facility] Number: Effective Repository Date:2018-07-23
== END ==
PROVIDERS: Referring Provider Obstetrics & Gynecology; Visit Provider Obstetrics & Gynecology
DX: Z00.01 Encounter for general adult medical examination with abnormal findings (principal)
CPT/HCPCS: 36415

== ENCOUNTER → 2018-09-27 17:50 | Outpatient (CLI) | payer OTHER, SELFPAY | PROVIDERS: Visit Provider Nurse Practitioner Women's Health | DX: Z36.9 Encounter for antenatal screening, unspecified (principal) | CPT/HCPCS: 36415 ==

== ENCOUNTER → 2019-01-24 13:44 | Outpatient (CLI) | payer OTHER, SELFPAY ==
[2018-12-27 16:18] VITALS: BMI 43.0
[2019-01-09 15:38] VITALS: BMI 43.0
--- NOTE | 2019-01-24 13:49 | US_ITS ---
STUDY: SECOND AND THIRD TRIMESTER OBSTETRICAL ULTRASOUND - LIMITED REASON FOR EXAM: Female, 38 years old. Evaluate growth LMP: 03/12/2019 PRIOR ULTRASOUND: 08/09/2018 TECHNIQUE: Transabdominal TECHNICAL QUALITY: Adequate. FINDINGS: There is a single intrauterine fetus. The fetus is in a transverse lie with the head on the maternal right side. There is demonstrated cardiac activity with a heart rate of 132 bpm. There is a normal amniotic fluid volume. The largest amniotic fluid pocket measures 7.0 cm. The amniotic fluid index (NELDA) is 23.2 cm. The placenta is fundal in location. There are Grade 1 placental changes. The cervix measures 3.7 cm in length. BIOMETRY: BPD: 8.5 cm: 34 weeks, 3 days HC: 32.3 cm: 36 weeks, 4 days AC: 30.3 cm: 34 weeks, 3 days FL: 6.5 cm: 33 weeks, 5 days Age by LMP: 36 weeks, 4 days. ANTONIA by LMP: 03/12/2019. age by current US: 34 weeks, 6 days. ANTONIA by current US: 03/12/2019. Estimated weight: 2405 grams, +/- 351 grams, 74 percentile. US/OB Limited With Biometrics IMPRESSION: Single viable intrauterine of approximately 34 weeks 6 days gestational age by current ultrasonographic measurement. The ENLDA is upper limits of normal. A heart rate of 132 bpm was noted. Electronically Signed: Marcos Adair MD at 16:43 EDT , Service support ,
== END ==
PROVIDERS: Referring Provider Obstetrics & Gynecology; Visit Provider Obstetrics & Gynecology
DX: O09.90 Supervision of high risk pregnancy, unspecified, unspecified trimester (principal); Z3A.00 Weeks of gestation of pregnancy not specified
CPT/HCPCS: 76816

== ENCOUNTER → 2019-02-03 16:34 | Outpatient (CLI) | payer OTHER, SELFPAY ==
[2019-02-03 16:07] VITALS: BMI 43.0
[2019-02-03 17:20] LABS: Absolute Lymphocyte Count 1.68 X10^3/ul (0.83-4.51); Absolute Neutrophil Count 8.4 X10^3/uL (2.0-7.7); Basophil# 0.01 X10^3/uL; Basophil% 0.1 % (0-1); Eosinophil# 0.17 X10^3/uL; Eosinophils% 1.5 % (0-5); Hematocrit 35.9 % (37-47); Hemoglobin 11.6 g/dl (12.0-15.0); Lymphocyte # 1.68 X10^3/ul (4.0); Lymphocyte % 14.9 % (19-41); Mean Corp Hgb Conc 32.3 g/gl (32-36); Mean Corpuscular Hgb 27.8 pg (27.0-32.0); Mean Corpuscular Volume 85.9 fL (81-99); Mean Platelet Vol. 9.9 fl (6.2-12.0); Monocyte# 1.01 X10^3/uL; Neutrophil # 8.36 X10^3/uL (2.7-7.7); Neutrophil % 74.1 % (47-70); Platelet Count 268 K/mm3 (150-450); RBC Distribution Width CV 14.5 % (11.6-14.6); RBC Distribution Width SD 45.3 fl (35.1-43.9); Red Blood Count 4.18 M/mm3 (4.2-5.4); White Blood Count 11.3 K/mm3 (4.4-11.0)
[2019-02-03 17:26] LABS: POSITIVE COUNT NO; POSITIVE DIFFERENTIAL NO; POSITIVE MORPHOLOGY NO
[2019-02-03 17:40] LABS: ALB/GLOB Ratio 0.6 RATIO (0.9-2.4); AST(SGOT) 15 U/L (15-37); Alanine Aminotransfer ALT/SGPT 15 U/L (13-56); Albumin, Serum 2.5 g/dL (3.2-5.0); Alkaline Phosphatase 91 U/L (45-117); Anion Gap 6 (5-15); BUN 15 mg/dL (7-18); BUN/Creat Ratio 19.9 RATIO (10-20); Calcium,Total 8.9 mg/dL (8.5-10.1); Chloride 109 mmol/L (98-107); Creatinine, Serum 0.76 mg/dL (0.55-1.02); EST Glomerular Filtration Rate 92 mL/min (>60); Est Glom Filt Rate - Afr Amer 111 mL/min (>60); Glucose 82 mg/dL (74-106); Potassium 4.1 mmol/L (3.5-5.1); Protein, Total 6.5 g/dL (6.4-8.2); Sodium Level 138 mmol/L (136-145)
[2019-02-03 19:18] LABS: Protein, Urine (Random) 16.5 mg/dL (<11.9); Protein:Creat Ratio 130 mg/g CRE (0-200)
[2019-02-03 19:20] LABS: Protein:Creat Ratio 119 mg/g CRE (0-200)
== END ==
PROVIDERS: Referring Provider Obstetrics & Gynecology; Visit Provider Obstetrics & Gynecology
DX: I10 Essential (primary) hypertension (principal)
CPT/HCPCS: 36415; 80053; 82570; 84156; 85025

== ENCOUNTER 2019-02-07 16:00 | Outpatient (CLI) | payer OTHER, SELFPAY ==
[2019-02-03 16:07] VITALS: BMI 43.0
[2019-02-07 16:12] VITALS: BMI 49.9
[2019-02-07 17:18] LABS: Hematocrit 34.9 % (37-47); Hemoglobin 11.2 g/dl (12.0-15.0); Mean Corp Hgb Conc 32.1 g/gl (32-36); Mean Corpuscular Hgb 27.4 pg (27.0-32.0); Mean Corpuscular Volume 85.3 fL (81-99); Mean Platelet Vol. 9.5 fl (6.2-12.0); Platelet Count 242 K/mm3 (150-450); RBC Distribution Width CV 14.7 % (11.6-14.6); RBC Distribution Width SD 45.9 fl (35.1-43.9); Red Blood Count 4.09 M/mm3 (4.2-5.4); White Blood Count 10.5 K/mm3 (4.4-11.0)
[2019-02-07 17:19] LABS: Scan Indicated on CBC? Y/N NO
[2019-02-07 17:22] LABS: Prothrombin Time (Protime)PT. 12.6 SECONDS (11.7-14.9)
[2019-02-07 17:23] LABS: Partial Thromboplast Time 29.7 Seconds (24.1-36.2)
[2019-02-07 18:00] LABS: AST(SGOT) 14 U/L (15-37); Creatinine, Serum 0.69 mg/dL (0.55-1.02); EST Glomerular Filtration Rate 103 mL/min (>60); Est Glom Filt Rate - Afr Amer 124 mL/min (>60); Estimated Creatinine Clearance 199.65 ml/min; Uric Acid 5.5 mg/dL (2.6-6.0)
[2019-02-07 18:01] LABS: Alanine Aminotransfer ALT/SGPT 15 U/L (13-56)
[2019-02-07 18:26] LABS: Protein, Urine (Random) 10.6 mg/dL (<11.9); Protein:Creat Ratio 135 mg/g CRE (0-200)
--- NOTE | 2019-02-12 07:00 | OB.TRI.PN_ITS ---
Progress Notes Date of Service: 02/07/19 Progress Note: Patient presents for elevated blood pressure initially in the office repeats are within normal limits heart tones 130s moderate variability reactive no decelerations category 1 tracing [place]: No regular contractions Assessment and plan: Elevated blood pressure Normal preeclampsia labs followed closely as outpatient reviewed preeclampsia precautions category 1 tracing reactive NST DC home Laboratory Studies: Laboratory Tests 02/07/19 02/07/19 02/07/19 Range/Units 16:55 16:55 16:55 WBC (4.4-11.0) K/mm3 RBC (4.2-5.4) M/mm3 Hgb (12.0-15.0) g/dl Hct (37-47) % MCV (81-99) fL MCH (27.0-32.0) pg MCHC (32-36) g/gl RDW (11.6-14.6) % RDW Differential (35.1-43.9) fl Plt Count (150-450) K/mm3 MPV (6.2-12.0) fl PT 12.6 (11.7-14.9) SECONDS INR 1.0 APTT 29.7 (24.1-36.2) Seconds Creatinine 0.69 (0.55-1.02) mg/dL Estim Creat Clear Calc 199.65 ml/min Est GFR (MDRD) Af Amer 124 (>60) mL/min Est GFR (MDRD) Non-Af 103 (>60) mL/min Uric Acid 5.5 (2.6-6.0) mg/dL AST 14 L (15-37) U/L ALT 15 (13-56) U/L U Random Total Protein 10.6 (<11.9) mg/dL Urine Creatinine 78.50 (NO RANGE EST.) mg/dL Protein/Creatinin Ratio 135 (0-200) mg/g CRE 02/07/19 Range/Units 16:55 WBC 10.5 (4.4-11.0) K/mm3 RBC 4.09 L (4.2-5.4) M/mm3 Hgb 11.2 L (12.0-15.0) g/dl Hct 34.9 L (37-47) % MCV 85.3 (81-99) fL MCH 27.4 (27.0-32.0) pg MCHC 32.1 (32-36) g/gl RDW 14.7 H (11.6-14.6) % RDW Differential 45.9 H (35.1-43.9) fl Plt Count 242 (150-450) K/mm3 MPV 9.5 (6.2-12.0) fl PT (11.7-14.9) SECONDS INR APTT (24.1-36.2) Seconds Creatinine (0.55-1.02) mg/dL Estim Creat Clear Calc ml/min Est GFR (MDRD) Af Amer (>60) mL/min Est GFR (MDRD) Non-Af (>60) mL/min Uric Acid (2.6-6.0) mg/dL AST (15-37) U/L ALT (13-56) U/L U Random Total Protein (<11.9) mg/dL Urine Creatinine (NO RANGE EST.) mg/dL Protein/Creatinin Ratio (0-200) mg/g CRE
== END 2019-02-07 17:40 | disposition home or self-care (01) ==
LOC: WPOUT 16:05 → WP 16:05
PROVIDERS: Referring Provider Obstetrics & Gynecology; Visit Provider Obstetrics & Gynecology
DX: O99.89 Other specified diseases and conditions complicating pregnancy, childbirth and the puerperium (principal); R03.0 Elevated blood-pressure reading, without diagnosis of hypertension; Z3A.00 Weeks of gestation of pregnancy not specified
CPT/HCPCS: 36415; 59025; 82565; 82570; 84156; 84450; 84460; 84550; 85027; 85610; 85730

== ENCOUNTER → 2019-02-14 17:32 | Outpatient (CLI) | payer OTHER, SELFPAY ==
[2019-02-14 16:11] VITALS: BMI 50.5
== END ==
PROVIDERS: Referring Provider Obstetrics & Gynecology; Visit Provider Obstetrics & Gynecology
DX: Z36.85 Encounter for antenatal screening for Streptococcus B (principal)
CPT/HCPCS: 87081

== ENCOUNTER 2019-02-21 16:50 | Outpatient (CLI) | payer OTHER, SELFPAY ==
[2019-02-21 16:07] VITALS: BMI 52.3
[2019-02-21 17:33] VITALS: BMI 50.3
--- NOTE | 2019-02-23 08:55 | OB.TRI.PN ---
Progress Notes Date of Service: 02/21/19 Progress Note: Patient presents for NST secondary to obesity heart tones 130s moderate variability reactive no decelerations category 1 tracing [place]: Irregular contractions Assessment and plan reactive NST secondary to obesity plan weekly NSTs until delivery
== END 2019-02-21 17:50 | disposition home or self-care (01) ==
LOC: WPOUT 16:54 → WP 16:55
PROVIDERS: Referring Provider Obstetrics & Gynecology; Visit Provider Obstetrics & Gynecology
DX: O99.210 Obesity complicating pregnancy, unspecified trimester (principal); Z3A.00 Weeks of gestation of pregnancy not specified
CPT/HCPCS: 59025; 99218; G0378

== ENCOUNTER 2019-03-05 05:20 | Inpatient (IN) | payer OTHER, SELFPAY ==
[2019-02-14 16:11] VITALS: BMI 50.5
[2019-02-28 15:58] VITALS: BMI 50.3
--- NOTE | 2019-03-05 04:49 | PCM.HPOB.BLA ---
- Problem List (1) Abnormal glucose affecting Status: Acute Comment: normal 3 hour gtt. 1 elevated value. she is wanting to intermittently check blood sugars. (2) Advanced maternal age (AMA) in Status: Acute Comment: genetic counseling discussed, plan growth scan at 36 weeks; Normal anatomy (3) Obesity affecting in third trimester Status: Acute Comment: encouraged weight loss. growth us after 32 weeks, nsts after 36 (4) Status: Acute Qualifiers: Comment: NIPT low risk. carrier screening declined. plan NTD screening. nl anatomy scan. (5) Supervision of high-risk Status: Acute Qualifiers: Comment: PRR ANTONIA 03/12/19 boy Anitra Cash (6) Transverse lie of fetus Status: Acute Qualifiers: Comment: declined ECV. plan at 39 weeks. History and Physical Date of Admission: 03/05/19 Intake Vital Signs 02/28/19 Blood Pressure 134/82 H 02/28/19 Body Mass Index (BMI) 50.3 02/28/19 Height 5 ft 02/28/19 Weight: 255 lb 2 oz 02/28/19 Body Mass Index (BMI) 49.8 02/28/19 Blood Pressure 134/92 H 02/28/19 Blood Pressure Location Rt brachial 02/28/19 Blood Pressure Position Sitting 10/30/18 Body Mass Index (BMI) 43.0 Intake Visit Reasons: 38 WEEK OB/NST Chief Complaint: est ob, nst Blood Bank Calendar Control Clerk Required: No Accompanied by: Spouse Is patient in pain?: No Allergies No Known Allergies Allergy (Verified 02/28/19 15:57) Medications vitamin#30 30 mg iron-10 mg iron-folic acid 1 mg-omg3 capsule 1 cap PO DAILY cap 09/16/18 [History Confirmed 02/28/19] Last Menstral Period: 05/25/18 Zika: Zika virus screening: Negative : No PFSH PFSH Medical History benign neck tumor (Acute) Surgical History History of tonsillectomy (Acute) Status post wrist surgery (Acute) Family History Unknown Cancer skin non hodgkins lymphoma lung Grandfather Diabetes Other Hypertension Social History Smoking Status: Never smoker alcohol intake: never substance use type: does not use caffeine: Yes what type of physical activity do you participate in: walking seatbelt use: always do you feel safe at home: Yes additional social history: Cash- works for 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 OB Visit ANTONIA Calculator Estimated Delivery Date 03/12/19 Based on Ultrasound Date 08/09/18 Current WG 38w 6d Number 1 Expected Delivery Route/Plan Specific Issue/Plans flu vaccine: declined tdap vaccine: declined rhogam: na LARC form signed: declines labor support person: Stephane pain management: wants minimal intervention cut cord/dad catch: yes : yes PP control planned: condoms discussed possible routes of delivery and associated risks: [] special requests: [] Initial Weight: 218 lb Date EGA Weight BP Urine Prot Glucose FHR FuHt Pres Mov CTX Dilation Effaced St Visit Note 08/21/18 11w 0d 218 lb 6 oz (+6 oz) 130/82 Negative Negative 170 no vb cramping. 09/16/18 14w 5d 219 lb 4 oz (+1 lb 4 oz) 102/80 Negative Negative 160 n ovb cramping 10/24/18 20w 1d 220 lb (+2 lb) 118/80 Negative Negative 146 Active absent No VB, LOF. Doing well. 12/17/18 27w 6d 232 lb 2 oz (+14 lb 2 oz) 120/90 130 28 absent no vb lof good fm n orgular ctx psitive zika screen to [place] but asymptomatic- no testing recommended 12/27/18 29w 2d 229 lb (+11 lb) 110/72 Negative Negative 135 30 Active absent no vb lof good fm no regular ctx, reviewed home BS checks- WNL 01/09/19 31w 1d 237 lb (+19 lb) 120/72 Negative Negative 134 31 Active absent No VB, LOF. Doing well. 01/24/19 33w 2d 238 lb (+20 lb) 124/84 Negative Negative 140 32 Transverse Active absent No VB, LOF. NST today. Just completed growth US 02/03/19 34w 5d 248 lb (+30 lb) 138/90 Negative Negative 140 35 Transverse Active absent transverse head maternal right- discussed ECV vs primary if still transverse by 39 weeks. 02/14/19 36w 2d 250 lb 6 oz (+32 lb 6 oz) 122/86 absent 02/28/19 38w 2d 255 lb 2 oz (+37 lb 2 oz) 134/82 130 Transverse absent no vb lof good fm no regular ctx Visit Notes Visit Date: 02/28/19 ??no vb lof good fm no regular ctx ??Bre Foster MD on 03/04/19 Visit Date: 02/14/19 ??No visit notes to display Visit Date: 02/03/19 ??transverse head maternal right- discussed ECV vs primary if still transverse by 39 weeks. ??Bre Foster MD on 02/03/19 Visit Date: 01/24/19 ??No VB, LOF. NST today. Just completed growth US ??RUTH Salinas on 01/24/19 Visit Date: 01/09/19 ??No VB, LOF. Doing well. ??RUTH Salinas on 01/09/19 Visit Date: 12/27/18 ??no vb lof good fm no regular ctx, reviewed home BS checks- WNL ??Bre Foster MD on 12/27/18 Visit Date: 12/17/18 ??no vb lof good fm n orgular ctx psitive zika screen to [place] but asymptomatic- no testing recommended ??Bre Foster MD on 12/17/18 Visit Date: 10/24/18 ??No VB, LOF. Doing well. ??RUTH Salinas on 10/24/18 Visit Date: 09/16/18 ??n ovb cramping ??Bre Foster MD on 09/16/18 Visit Date: 08/21/18 ??no vb cramping. ??Bre Foster MD on 08/21/18 ACOG First Trimester First Trimester: Desire for , Alcohol, Tobacco Cessation, Illicit/Recreational Drug/Substance Use, Intimate Partner Violence, Barriers to care, Unstable Housing, Communication Barriers, Environmental/Work Hazards, Anticipated Course of Care, Toxoplasmosis Precations, Use of Any medications, Sexual activity, Exercise, Dental Care, Sauna/Hot tub use, Seat Belt use, Childbirth classes/Hospital facilities, , Travel, Indications for US and Screening for Aneuploidy Diagnostics Diagnostics Labs Hct 34.9 % (37-47) L 02/07/19 Hgb 11.2 g/dl (12.0-15.0) L 02/07/19 Obstetrics Ultrasound 01/24/19 Details: HIV: Urine Culture: Sequential Screen: NIPT Screen: Office Procedures OB NST Non-Stress Test Indications for Monitoring: Yes BMI >40 Heart Rate Baseline: 130 Heart Rate Variability: moderate Movement: Present Heart Rate Accelerations: Present Decelerations: Absent Contractions: Absent Impression: Yes Reactive Non-Stress Test Category 1 Assessment & Plan Problems 1. Supervision of high risk in third trimester O09.93 2. Advanced maternal age (AMA) in 3. Abnormal glucose affecting O99.810 4. Obesity affecting in third trimester O99.213 5. Transverse lie of fetus, single or unspecified fetus O32.2XX0 6. 38 weeks gestation of Z3A.38 Plan ACOG trimester education reviewed and updated. see problem list details for updated plan management information and see below for orders placed at this visit. GA appropriate handout given. movement and labor precautions reviewed. Orders Orders: POC Urinalysis 2 Dip (Clinic) 02/28/19 OB NST 02/28/19 [id number] Coding Level of Care Code OB Routine Diagnoses Supervision of high risk in third trimester O09.93 ??Trimester: third trimester Advanced maternal age (AMA) in Abnormal glucose affecting O99.810 Obesity affecting in third trimester O99.213 Transverse lie of fetus, single or unspecified fetus O32.2XX0 ??Fetus number: single or unspecified fetus 38 weeks gestation of Z3A.38 ??Weeks of gestation: 38 weeks Additional Codes Non-Stress Test (61388) UPDATE- I have seen the patient and performed any clinically relevant updates to the history and physical exam. Bre Foster MD
[2019-03-05] MEDS: Lactated Ringers 1,000 ML 999 ML IV (06:00)
[2019-03-05 06:20] VITALS: BMI 50.3
[2019-03-05 06:28] LABS: Absolute Lymphocyte Count 2.19 X10^3/ul (0.83-4.51); Absolute Neutrophil Count 7.1 X10^3/uL (2.0-7.7); Basophil# 0.02 X10^3/uL; Basophil% 0.2 % (0-1); Eosinophil# 0.21 X10^3/uL; Hematocrit 34.7 % (37-47); Lymphocyte # 2.19 X10^3/ul (4.0); Lymphocyte % 20.7 % (19-41); Mean Corp Hgb Conc 31.7 g/gl (32-36); Mean Corpuscular Hgb 26.6 pg (27.0-32.0); Mean Corpuscular Volume 83.8 fL (81-99); Monocyte# 1.04 X10^3/uL; Monocyte% 9.8 % (0-10); Neutrophil # 7.11 X10^3/uL (2.7-7.7); Neutrophil % 67.1 % (47-70); Platelet Count 284 K/mm3 (150-450); RBC Distribution Width CV 15.1 % (11.6-14.6); RBC Distribution Width SD 46.4 fl (35.1-43.9); Red Blood Count 4.14 M/mm3 (4.2-5.4); White Blood Count 10.6 K/mm3 (4.4-11.0)
[2019-03-05 06:29] LABS: POSITIVE COUNT NO; POSITIVE DIFFERENTIAL NO; POSITIVE MORPHOLOGY NO
[2019-03-05] MEDS: Lactated Ringers 1,000 ML 150 ML IV (07:14)
[2019-03-05] MEDS: Sodium Citrate/Citric Acid 30 ML UDC PO (07:15)
[2019-03-05 08:31] LABS: Creatinine, Urine (random) < 13.00 mg/dL (NO RANGE EST.); Protein, Urine (Random) < 6.0 mg/dL (<11.9)
[2019-03-05 08:40] LABS: ALB/GLOB Ratio 0.6 RATIO (0.9-2.4); AST(SGOT) 16 U/L (15-37); Alanine Aminotransfer ALT/SGPT 14 U/L (13-56); Albumin, Serum 2.4 g/dL (3.2-5.0); Alkaline Phosphatase 111 U/L (45-117); Anion Gap 6 (5-15); BUN 14 mg/dL (7-18); BUN/Creat Ratio 18.8 RATIO (10-20); Calcium,Total 8.3 mg/dL (8.5-10.1); Chloride 110 mmol/L (98-107); Creatinine, Serum 0.75 mg/dL (0.55-1.02); EST Glomerular Filtration Rate 93 mL/min (>60); Est Glom Filt Rate - Afr Amer 113 mL/min (>60); Estimated Creatinine Clearance 74.49 ml/min; Glucose 78 mg/dL (74-106); Potassium 3.9 mmol/L (3.5-5.1); Protein, Total 6.4 g/dL (6.4-8.2); Sodium Level 139 mmol/L (136-145)
[2019-03-05] MEDS: miSOPROStol 25 MCG TABLET PO ×3 (13:53→23:13)
[2019-03-05] MEDS: Lactated Ringers 1,000 ML 50 ML IV (20:48)
[2019-03-06] MEDS: miSOPROStol 25 MCG TABLET PO (02:58)
[2019-03-06] MEDS: miSOPROStol 25 MCG TABLET 50 MCG PO (07:42)
[2019-03-06] MEDS: 0.9% Saline Lock 10 ML Syringe IV (10:59)
[2019-03-06] MEDS: miSOPROStol 25 MCG TABLET 50 MCG VAGINAL (11:57)
[2019-03-06] MEDS: Labetalol 100 MG Tablet PO ×2 (12:05→22:35)
[2019-03-06] MEDS: Magnesium Sulfate 20 GM/500 ML BAG IV ×2 (12:26→21:31)
[2019-03-06] MEDS: 0.9% Normal Saline 100 ML IV.SOLN. INTRA-UTER (16:58)
[2019-03-06] MEDS: Oxytocin 30 units/NS 500 ml 30 UNITS/500 ML IV.SOLN IV (17:29)
[2019-03-06] MEDS: Acetaminophen 500 MG Tablet 1000 MG PO (18:23)
--- NOTE | 2019-03-06 18:25 | PCM.PN.BLA ---
Progress Note heart tones 140s moderate variability reactive no decelerations getaway 1 tracing [place]: Q. 3 to 5 minutes Patient had some periods of elevated blood pressures and was given 1 dose of IV labetalol and started on labetalol 100 mill grams p.o. twice daily. Patient was also started on magnesium sulfate 6 g post and then 2 g an hour. Status post 24 hours of Cytotec now Quintanilla bulb placed and Pitocin running. Continue expectant management
[2019-03-06] MEDS: Sodium Chloride 0.65% 1 SPRAY SPRAY.BTL NASAL (19:44)
[2019-03-06] MEDS: oxyCODONE 5 MG Tablet PO (21:31)
[2019-03-07] VITALS (9 sets, daily range): BP systolic 91–147; BP diastolic 64–99; PULSE 114–121; RESP 18–20; TEMP 36.1–36.9; O2SAT 92–96
[2019-03-07] MEDS: Nalbuphine 10 MG/ML Ampul IV (00:49)
[2019-03-07] MEDS: Ondansetron 4 MG/2 ML Vial IV (03:52)
[2019-03-07] MEDS: Lactated Ringers 1,000 ML 50 ML IV (06:33)
[2019-03-07] MEDS: fentaNYL-bupivacaine (epidural) 100 ML BAG EPIDURAL ×3 (06:34→15:44)
--- NOTE | 2019-03-07 07:47 | PCM.PN.BLA ---
Progress Note fht 130 moderate variability reactive no decelerations category I tracing [place]: regular arom clear fluid. bps ocntrolled on magnesium. s/p epidural pit per protocol
[2019-03-07] MEDS: Magnesium Sulfate 20 GM/500 ML BAG IV ×2 (09:37→19:20)
[2019-03-07] MEDS: Sodium Citrate/Citric Acid 30 ML UDC PO (19:20)
[2019-03-07] MEDS: Lactated Ringers 1,000 ML 999 ML IV (19:21)
--- NOTE | 2019-03-07 19:24 | PCM.PN.BLA ---
Progress Note cat I tracing, no cervical change, pitocin maxed out for 4 hours. still 4 cm. discussed recommended primary for failure to progress. patient agreeable to proceed.
--- NOTE | 2019-03-07 19:28 | OP.PCM_ITS ---
Problem List (1) Abnormal glucose affecting Status: Acute Comment: normal 3 hour gtt. 1 elevated value. she is wanting to intermittently check blood sugars. (2) Advanced maternal age (AMA) in Status: Acute Comment: genetic counseling discussed, plan growth scan at 36 weeks; Normal anatomy (3) Obesity affecting in third trimester Status: Acute Comment: encouraged weight loss. growth us after 32 weeks, nsts after 36 (4) Status: Acute Qualifiers: Comment: NIPT low risk. carrier screening declined. plan NTD screening. nl anatomy scan. (5) Supervision of high-risk Status: Acute Qualifiers: Comment: PRR ANTONIA 03/12/19 boy Anitra Cash (6) Transverse lie of fetus Status: Acute Qualifiers: Comment: declined ECV. plan at 39 weeks. Delivery Classification: BLADE Indications: pre Eclampsia with severe features Indications for : Failure to Progress Description of Procedure: Patient presented with elevated blood pressures and initially was transverse presentation that converted to vertex and therefore proceeded with induction of labor with 24 hours of Cytotec to which she may change to a half a centimeter. Quintanilla bulb inserted and Pitocin started. Pitocin given for 26 hours and no cervical change beyond 4 cm with an arrest of dilation for 16 hours. Pitocin was maxed out and patient underwent a Pitocin washout but still had no cervical change. Rupture of membranes for 13 hours. Patient was counseled to proceed with a primary low transverse . Epidural anesthesia was found to be adequate and the patient was placed in the dorsal supine position with leftward tilt. Patient was prepped and draped in the normal sterile fashion. Pfannenstiel skin incision was made with the scalpel and carried through to the underlying layer of fascia with the scalpel. Fascia was nicked in the midline and the incision extended laterally. The rectus bellies were dissected off superiorly and inferiorly with out complication both sharply and bluntly. The peritoneum was entered digitally. The incision was stretched and a low transverse uterine incision was made with the scalpel. The infant's head was delivered atraumatically followed by the anterior and posterior shoulders without complication the rest of the delivered. The cord was clamped and cut and the was handed off to awaiting nurse. The placenta was delivered spontaneously immediately following and was noted to be intact and have a three- vessel cord. The uterus was exteriorized cleared of all clots and debris, and the incision was closed in a double layer closure using #1 Monocryl. The uterus was returned to the maternal abdomen and gutters were cleared of all clots and debris. The ovaries and fallopian tubes were noted to be within normal limits. The peritoneum was closed with 3-0 Monocryl in a running fashion. Fascia was closed with 0 PDS in a running fashion. Subcutaneous tissue was copiously irrigated and the skin was closed with 3-0 Monocryl in a subcuticular fashion. Steri-Strips and Mepilex dressing were applied without complication. Patient was taken to recovery in stable condition. Amniotic Membrane Rupture Type: Artificial Amniotic Fluid Description: Clear Placenta Disposition: [facility] Drain: Quintanilla to straight drain Cord Entanglement: None Cord Vessel Description: 3 Vessels Delayed cord clamping: Yes Pre-op Antibiotic Given: - - Ancef 3 g and azithromycin 500 mg Complications: None - Admit VTE Documentation VTE Present on Admission: No VTE Mechan Device Prophylaxis: SCD's
--- NOTE | 2019-03-07 19:56 | PLAC_PTH ---
PATIENT: ERASMO MCKEON LOC: [facility] U#:[id number] AGE/SX: 38/F ROOM: WP016 RE03/05/[address]: Dr. Bre Foster MD : 1980 BED: 1 DIS: 03/10/2019 SPEC #: [id number] RECD: 03/08/19 01:53 STATUS: RACHEL FARA #: [id number] MICHAEL: 03/07/19 19:[address]: Bre Foster DEPT: SURGICAL PATHOLOGY RECD BY: Enzo Manuel ENTERED: 03/10/19 10:32 SP TYPE: PLACENTA OT DR: No Primary Care Phys Tissues: Placenta, NOS Procedures: Surgery Specimen Level V HEADER OPERATION: section PRE-OP DIAGNOSIS: Primary section TISSUE SUBMITTED: Placenta MICROSCOPIC DIAGNOSIS Placenta: Placental disc - third trimester placenta (586 gm). - Focal area of intraparenchymal hemorrhage (2 cm in greatest dimension). - Focal simple cyst filled with fibrinous material. - Focal area of fibrinous plaque, maternal surface (0.5 cm in greatest dimension). Membranes - early acute chorioamnionitis. Umbilical cord - three blood vessels and no pathologic diagnosis. SJ:sterling 03/12/19 MICROSCOPIC DESCRIPTION Slides are reviewed. GROSS DESCRIPTION SPECIMEN: PLACENTA / CLINICAL INFORMATION: A. Weight: 3.06 kg B. Gestational Age: 39 weeks C. Sex: Male PLACENTAL WEIGHT (POST FIXATION): 586 gm PLACENTAL DIMENSIONS: 22 x 18 x 3.5 cm PLACENTAL SHAPE: Usual ovoid PLACENTAL WEIGHT FOR GESTATIONAL AGE: Within 10-99th percentile MEMBRANES - Present A. Insertion: Marginal B. Site of rupture from edge: 10 cm from edge of placental disc C. Color of membrane: Mendez-mucoidy D. Abnormalities: None UMBILICAL CORD - Present A. Color: Mendez-chong B. Insertion: Central C. Length: 19 cm D. Diameter: 1 cm E. Number of vessels: Three F. Abnormalities: None PLACENTAL DISC - Present A. Color of surface: Mendez-chong B. surface abnormalities: None C. Maternal cotyledons: Intact with minimal tears D. Attached retro placental clot: No clot E. Cut surface: Dark red and spongy F. Lesions: Sections reveal a cyst filled with mucoid material measuring 1.2 cm in greatest dimension. Sections also reveal a mendez, hemorrhagic area measuring 2 cm in greatest dimension. A second mendez, indurated lesion is also noted measuring 0.5 cm in greatest dimension. G. Separate clot: Absent SECTIONS SUBMITTED: 1. Membrane roll 2. Cord, maternal end 3. Cord, end 4. Placental disc, and maternal surfaces, cyst 5. Placental disc, and maternal surfaces, smaller lesion 6. Placental disc, and maternal surfaces, larger lesion SJ:rg 03/11/19 TC:2 CPT: 20759
[2019-03-07] MEDS: Oxytocin 30 units/NS 500 ml 30 UNITS/500 ML IV.SOLN 167 UNITS IV (20:00)
[2019-03-07] MEDS: Ketorolac 30 MG/ML Syringe IV (20:20)
[2019-03-07] MEDS: Lactated Ringers 1,000 ML 100 ML IV (21:00)
--- NOTE | 2019-03-07 21:00 | NURSING ---
Addendum entered by Michelle Amrstrong 03/07/19 21:46: Original Note: Unablet to perform magnesium checks in OR from [id number], unable to check reflexes and record I and O. See post op VS for current VS. Pt in recovery at this time.
[2019-03-08] VITALS (26 sets, daily range): BP systolic 107–136; BP diastolic 55–87; PULSE 75–118; RESP 13–20; TEMP 36–37.6; O2SAT 93–99
--- NOTE | 2019-03-08 | NURSING ---
See Magnesium flowsheet for VS.
[2019-03-08 01:52] LABS: Pathology Specimen OB SEE PATHOLOGY REPORT
--- NOTE | 2019-03-08 02:28 | NURSING ---
epidural catheter removed and blue tip intact @ 0220.
[2019-03-08] MEDS: Ketorolac 30 MG/ML Syringe IV ×4 (03:10→19:55)
[2019-03-08] MEDS: Magnesium Sulfate 20 GM/500 ML BAG IV (06:28)
[2019-03-08 06:59] LABS: Hematocrit 28.1 % (37-47); Mean Corpuscular Hgb 26.5 pg (27.0-32.0); Mean Corpuscular Volume 82.9 fL (81-99); Mean Platelet Vol. 10.1 fl (6.2-12.0); Platelet Count 248 K/mm3 (150-450); RBC Distribution Width CV 15.1 % (11.6-14.6); RBC Distribution Width SD 44.1 fl (35.1-43.9); Red Blood Count 3.39 M/mm3 (4.2-5.4)
[2019-03-08 07:00] LABS: Scan Indicated on CBC? Y/N NO
--- NOTE | 2019-03-08 09:42 | PCM.PN.OB ---
Subjective: doing well no complaints pain controlled no CP SOB N V ambulating well tolerating po lochia moderate, going well - Physical Exam General: Alert, Oriented x3 Vital Signs Temp Pulse Resp BP Pulse Ox 97.3 F L 112 H 18 121/72 H 97 03/08/19 09:32 03/08/19 09:32 03/08/19 09:39 03/08/19 09:32 03/08/19 09:39 Oxygen Flow Rate (L/min) 2 Oxygen Delivery Method Room Air Weight: 257 lb 6.4 oz Body Mass Index (BMI) 50.3 Intake and Output for Last 24 Hours 03/06/19 03/07/19 03/08/19 23:59 23:59 23:59 Intake Total 1764 / 1764 3059 / 3059 1548 / 1548 Output Total 2200 / 2200 2100 / 2100 980 / 980 Balance -436 / -436 959 / 959 568 / 568 Laboratory Tests Past 24 Hrs 03/08/19 06:40 WBC 12.0 H RBC 3.39 L Hgb 9.0 L Hct 28.1 L MCV 82.9 MCH 26.5 L MCHC 32.0 RDW 15.1 H RDW Differential 44.1 H Plt Count 248 MPV 10.1 Medical Necessity - Tobacco Use Smoking Status: Never smoker Assessment/Plan All Active Problems (Last Reviewed 02/28/19 @ 15:57 by Emily Jin) Transverse lie of fetus (Acute) Obesity affecting in third trimester (Acute) Abnormal glucose affecting (Acute) Advanced maternal age (AMA) in (Acute) (Acute) Supervision of high-risk (Acute) screening encounter (Resolved) BMI 40.0-44.9, adult (Resolved) Elevated blood pressure affecting in third trimester, antepartum (Resolved) Sinusitis (Resolved) Subconjunctival hemorrhage of right eye (Resolved) s/p LTCS PPD # 1 1. routine post care 2. breast feeding- support given 3. rh positive 4. rubella immune
--- NOTE | 2019-03-08 09:43 | DCINST_ITS ---
Discharge Diet: No Restrictions Discharge Activity: May Not Drive - for 2 weeks, May not drive while taking narcotic pain medications., May Shower, May Take a Tub Bath - in 7 days May resume sexual activity in: 4-6 weeks Lifting Restrictions: 20 pounds Additional Activity Instructions:: Nothing in the vagina for 4-6 weeks. You may return to work/school in 6 weeks. Call your doctor if your incision/area has: Continuous Slow Oozing, Sudden Increased Bleeding, Increased Pain/ Swelling, Increased Redness, Foul Smelling Discharge Call your doctor if you observe: Fever of 101 or Higher, Using more than one pad per hour - for 2 hours Suture Line Care: Avoid Pulling/Pushing, Avoid Pinching/Bending Cleanse incision/area with: Keep Dressing Clean & Dry Additional Instructions: If you experience any of the following, contact your healthcare provider. * Bleeding that soaks a pad every hour for 2 hours * Fever 100.4 or higher * Unrelieved incision or abdominal pain * Swelling, redness, discharge or bleeding from your incision or episiotomy site * Your incision begins to separate * Problems urinating (including inability to urinate or burning while urinating). * Visual changes * Severe headache * Flu-like symptoms * Pain or redness in one of both of your breasts * Pain, warmth, tenderness or swelling in your legs, especially the calf area * Frequent nausea and vomiting * Symptoms of depression or anxiety If you experience any of the following, call 911 or go to the nearest Emergency Room. * Chest pain * Problems breathing * Seizure activity * Partial or complete paralysis of a body part, slurred speech, weakness or drooping of the face, or a sudden inability to walk or hold your balance Allergies/Adverse Reactions: Allergies No Known Allergies Allergy (Verified 03/05/19 06:20) Medications to take at Discharge vitamin#30 30 mg iron-10 mg iron-folic acid 1 mg-omg3 capsule 1 cap PO DAILY cap 09/16/18 Naproxen [Naprosyn] 250 - 500 mg PO Q8H PRN PRN #30 tablet 03/07/19 Oxycodone HCl/Acetaminophen [Percocet 5-325] 1 - 2 tablet PO Q4H PRN PRN 7 Days #28 tablet 03/07/19 The following prescriptions were given: Oxycodone HCl/Acetaminophen [Percocet 5-325] 1 - 2 tablet PO Q4H PRN PRN 7 Days #28 tablet PRN Reason: Moderate-Severe pain Naproxen [Naprosyn] 250 - 500 mg PO Q8H PRN PRN #30 tablet PRN Reason: MILD PAIN Follow-Up: Call to make an appointment with your doctor for an incision check in 1-2 weeks. You will also need a 6 week post- follow up appointment. Test results from this visit will be discussed in further detail at your follow- up appointment, if applicable. Please Follow Up With: Bre Foster MD - Call to make an appointment for an incision check in 1-2 [phone] When: You will need a post- check in 6 weeks. Primary Care Physician: Care Physician,No Primary [Primary Care Provider] -
[2019-03-08] MEDS: Enoxaparin 40 MG/0.4 ML Syringe SC ×2 (10:40→22:44)
[2019-03-08] MEDS: 0.9% Saline Lock 10 ML Syringe IV ×3 (14:31→19:55)
--- NOTE | 2019-03-08 19:10 | NURSING ---
see mag flow sheet for VS
[2019-03-08] MEDS: Senna/Docusate Sodium 1 Tablet PO (22:51)
[2019-03-09 02:00] VITALS: BP 138/78; PULSE 120; RESP 16; TEMP 36.6
[2019-03-09] MEDS: Ketorolac 30 MG/ML Syringe IV (02:28)
[2019-03-09] MEDS: 0.9% Saline Lock 10 ML Syringe IV (02:29)
--- NOTE | 2019-03-09 06:50 | NURSING ---
Pt's called out, states pt was incont of urine and stool in bed and was unable to make it to the bathroom. Pt showered, bed changed, up in chair. Pt denies any c/o. Pt refusing toradol, states it makes her have crazy dreams, IV d/c'd. Pt instructed to call with needs.
[2019-03-09] MEDS: Naproxen 250 MG Tablet PO ×2 (08:11→16:46)
--- NOTE | 2019-03-09 08:12 | PCM.PN.OB ---
Subjective: doing well no complaints pain controlled no CP SOB N V ambulating well tolerating po lochia moderate, going well - Physical Exam General: Alert, Oriented x3 Abdomen: Soft, Non-Distended, - - FF below U. Dressing dry and intact Vital Signs Temp Pulse Resp BP Pulse Ox 98 F 120 H 16 138/78 H 99 03/09/19 02:00 03/09/19 02:00 03/09/19 02:00 03/09/19 02:00 03/08/19 20:00 Oxygen Flow Rate (L/min) 2 Oxygen Delivery Method Room Air Weight: 257 lb 6.4 oz Body Mass Index (BMI) 50.3 Intake and Output for Last 24 Hours 03/07/19 03/08/19 03/09/19 23:59 23:59 23:59 Intake Total 3059 / 3059 2411 / 2411 Output Total 2100 / 2100 2962 / 2962 300 / 300 Balance 959 / 959 -551 / -551 -300 / -300 Medical Necessity - Tobacco Use Smoking Status: Never smoker Assessment/Plan All Active Problems (Last Reviewed 02/28/19 @ 15:57 by Emily Jin) Transverse lie of fetus (Acute) Obesity affecting in third trimester (Acute) Abnormal glucose affecting (Acute) Advanced maternal age (AMA) in (Acute) (Acute) Supervision of high-risk (Acute) screening encounter (Resolved) BMI 40.0-44.9, adult (Resolved) Elevated blood pressure affecting in third trimester, antepartum (Resolved) Sinusitis (Resolved) Subconjunctival hemorrhage of right eye (Resolved) s/p LTCS PPD # 2 1. routine post care 2. breast feeding- support given 3. rh positive 4. rubella immune 5. Blood pressure WNL
[2019-03-09 08:15] VITALS: BP 147/72; PULSE 100; RESP 16; TEMP 36.8
[2019-03-09] MEDS: Enoxaparin 40 MG/0.4 ML Syringe SC ×2 (10:00→21:53)
[2019-03-09 15:00] VITALS: BP 149/85; PULSE 105; RESP 16; TEMP 37.2
[2019-03-09 21:45] VITALS: BP 156/80; PULSE 121; RESP 18; TEMP 36.3; O2SAT 97
[2019-03-09 22:35] VITALS: BP 168/78; PULSE 115; RESP 18; O2SAT 98
[2019-03-09 23:00] VITALS: BP 139/79
[2019-03-10] MEDS: Acetaminophen 500 MG Tablet 1000 MG PO ×2 (02:26→12:14)
[2019-03-10 02:30] VITALS: BP 134/87; PULSE 110; RESP 18; TEMP 36.9; O2SAT 95
--- NOTE | 2019-03-10 08:09 | PCM.PN.OB ---
Subjective: doing well no complaints pain controlled no CP SOB N V ambulating well tolerating po lochia moderate, going well - Physical Exam General: Alert, Oriented x3 Abdomen: Soft, Non-Distended, - - FF below U. Minimal tenderness noted with exam. Extensive ecchymosis noted lower abdomen. No masses noted. Cool to touch. Binder on. Large panus. Vital Signs Temp Pulse Resp BP Pulse Ox 98.5 F 110 H 18 134/87 H 95 03/10/19 02:30 03/10/19 02:30 03/10/19 02:30 03/10/19 02:30 03/10/19 02:30 Oxygen Flow Rate (L/min) 2 Oxygen Delivery Method Room Air Weight: 257 lb 6.4 oz Body Mass Index (BMI) 50.3 Intake and Output for Last 24 Hours 03/08/19 03/09/19 03/10/19 23:59 23:59 23:59 Intake Total 2411 / 2411 Output Total 2962 / 2962 300 / 300 Balance -551 / -551 -300 / -300 Medical Necessity - Tobacco Use Smoking Status: Never smoker Assessment/Plan All Active Problems (Last Reviewed 02/28/19 @ 15:57 by Emily Jin) Transverse lie of fetus (Acute) Obesity affecting in third trimester (Acute) Abnormal glucose affecting (Acute) Advanced maternal age (AMA) in (Acute) (Acute) Supervision of high-risk (Acute) screening encounter (Resolved) BMI 40.0-44.9, adult (Resolved) Elevated blood pressure affecting in third trimester, antepartum (Resolved) Sinusitis (Resolved) Subconjunctival hemorrhage of right eye (Resolved) s/p LTCS PPD # 3 1. routine post care 2. breast feeding- support given 3. rh positive 4. rubella immune 5. Continue with binder 6. Call with worsening bruising, pain. 7. Reviewed S&S elevation of BP and when to call 8. home today
--- NOTE | 2019-03-10 08:14 | DS.PCM_ITS ---
Discharge Date and Diagnosis Date of Admission: 03/05/19 Hospital Course and Treatment Procedures: - - primary LTCS for FTP Summary of Care Provided: The patient is a 38 year old F Patient underwent section with routine recovery, return of normal bowel and bladder function. Ambulating, voiding and tolerating PO. Stable for discharge home POD #3. - Physical Exam Vital Signs Temp Pulse Resp BP Pulse Ox 98.5 F 110 H 18 134/87 H 95 03/10/19 02:30 03/10/19 02:30 03/10/19 02:30 03/10/19 02:30 03/10/19 02:30 Oxygen Flow Rate (L/min) 2 Oxygen Delivery Method Room Air Weight: 257 lb 6.4 oz Body Mass Index (BMI) 50.3 Intake and Output for Last 24 Hours 03/08/19 03/09/19 03/10/19 23:59 23:59 23:59 Intake Total 2411 / 2411 Output Total 2962 / 2962 300 / 300 Balance -551 / -551 -300 / -300 Discharge Diet: No Restrictions Discharge Activity: May Not Drive - for 2 weeks, May not drive while taking narcotic pain medications., May Shower, May Take a Tub Bath - in 7 days May resume sexual activity in: 4-6 weeks Additional Activity Instructions:: Nothing in the vagina for 4-6 weeks. You may return to work/school in 6 weeks. Call your doctor if your incision/area has: Continuous Slow Oozing, Sudden I ncreased Bleeding, Increased Pain/ Swelling, Increased Redness, Foul Smelling Discharge Call your doctor if you observe: Fever of 101 or Higher, Using more than one pad per hour - for 2 hours Suture Line Care: Avoid Pulling/Pushing, Avoid Pinching/Bending Cleanse incision/area with: Keep Dressing Clean & Dry Home Medications: Medications to take at Discharge vitamin#30 30 mg iron-10 mg iron-folic acid 1 mg-omg3 capsule 1 cap PO DAILY cap 09/16/18 Naproxen [Naprosyn] 250 - 500 mg PO Q8H PRN PRN #30 tablet 03/07/19 Oxycodone HCl/Acetaminophen [Percocet 5-325] 1 - 2 tablet PO Q4H PRN PRN 7 Days #28 tablet 03/07/19 Naproxen [Naprosyn] 500 mg PO BID PRN PRN #60 tablet 03/10/19 Oxycodone HCl/Acetaminophen [Percocet 5/325] 1 - 2 tablet PO Q4H PRN PRN 3 Days #15 tablet 03/10/19 Following Prescrptions Were Given to Patient: Oxycodone HCl/Acetaminophen [Percocet 5-325] 1 - 2 tablet PO Q4H PRN PRN 7 Days #28 tablet PRN Reason: Moderate-Severe pain Oxycodone HCl/Acetaminophen [Percocet 5/325] 1 - 2 tablet PO Q4H PRN PRN 3 Days #15 tablet PRN Reason: Pain Naproxen [Naprosyn] 250 - 500 mg PO Q8H PRN PRN #30 tablet PRN Reason: MILD PAIN Naproxen [Naprosyn] 500 mg PO BID PRN PRN #60 tablet PRN Reason: Pain Primary Care Physician: Care Physician,No Primary [Primary Care Provider] - Please Follow Up With: Bre Foster MD - Call to make an appointment for an incision check in 1-2 [phone] When: You will need a post- check in 6 weeks. Medical Necessity - Tobacco Use Smoking Status: Never smoker Meaningful Use Info Meaningful Use Diagnoses (Choose all that apply): None applicable
--- NOTE | 2019-03-10 08:15 | DCINST_ITS ---
Discharge Diet: No Restrictions Discharge Activity: May Not Drive - for 2 weeks, May not drive while taking narcotic pain medications., May Shower, May Take a Tub Bath - in 7 days May resume sexual activity in: 4-6 weeks Additional Activity Instructions:: Nothing in the vagina for 4-6 weeks. You may return to work/school in 6 weeks. Call your doctor if your incision/area has: Continuous Slow Oozing, Sudden Increased Bleeding, Increased Pain/ Swelling, Increased Redness, Foul Smelling Discharge Call your doctor if you observe: Fever of 101 or Higher, Using more than one pad per hour - for 2 hours Suture Line Care: Avoid Pulling/Pushing, Avoid Pinching/Bending Cleanse incision/area with: Keep Dressing Clean & Dry Additional Instructions: If you experience any of the following, contact your healthcare provider. * Bleeding that soaks a pad every hour for 2 hours * Fever 100.4 or higher * Unrelieved incision or abdominal pain * Swelling, redness, discharge or bleeding from your incision or episiotomy site * Your incision begins to separate * Problems urinating (including inability to urinate or burning while urinating). * Visual changes * Severe headache * Flu-like symptoms * Pain or redness in one of both of your breasts * Pain, warmth, tenderness or swelling in your legs, especially the calf area * Frequent nausea and vomiting * Symptoms of depression or anxiety If you experience any of the following, call 911 or go to the nearest Emergency Room. * Chest pain * Problems breathing * Seizure activity * Partial or complete paralysis of a body part, slurred speech, weakness or drooping of the face, or a sudden inability to walk or hold your balance Allergies/Adverse Reactions: Allergies No Known Allergies Allergy (Verified 03/05/19 06:20) Medications to take at Discharge vitamin#30 30 mg iron-10 mg iron-folic acid 1 mg-omg3 capsule 1 cap PO DAILY cap 09/16/18 Naproxen [Naprosyn] 250 - 500 mg PO Q8H PRN PRN #30 tablet 03/07/19 Oxycodone HCl/Acetaminophen [Percocet 5-325] 1 - 2 tablet PO Q4H PRN PRN 7 Days #28 tablet 03/07/19 Naproxen [Naprosyn] 500 mg PO BID PRN PRN #60 tablet 03/10/19 Oxycodone HCl/Acetaminophen [Percocet 5/325] 1 - 2 tablet PO Q4H PRN PRN 3 Days #15 tablet 03/10/19 The following prescriptions were given: Oxycodone HCl/Acetaminophen [Percocet 5-325] 1 - 2 tablet PO Q4H PRN PRN 7 Days #28 tablet PRN Reason: Moderate-Severe pain Oxycodone HCl/Acetaminophen [Percocet 5/325] 1 - 2 tablet PO Q4H PRN PRN 3 Days #15 tablet PRN Reason: Pain Naproxen [Naprosyn] 250 - 500 mg PO Q8H PRN PRN #30 tablet PRN Reason: MILD PAIN Naproxen [Naprosyn] 500 mg PO BID PRN PRN #60 tablet PRN Reason: Pain Follow-Up: Call to make an appointment with your doctor for an incision check in 1-2 weeks. You will also need a 6 week post- follow up appointment. Test results from this visit will be discussed in further detail at your follow- up appointment, if applicable. Primary Care Physician: Care Physician,No Primary [Primary Care Provider] -
[2019-03-10 08:29] VITALS: BP 148/86; PULSE 87; RESP 18; TEMP 36.9; O2SAT 97
[2019-03-10] MEDS: Enoxaparin 40 MG/0.4 ML Syringe SC (10:02)
--- NOTE | 2019-03-10 10:42 | NURSING ---
Pressure dressing removed by Marry Patiño NP at this time. Silver mepilex attached to pressure dressing. Removed and new silver mepilex placed by Marry Patiño NP. Old mepilex noted to be dry with no drainage. Inscision site approximated with no redness or drainage. Bruising noted and unchanged from previous assessment. New mepliex dry and intact.
[2019-03-10 14:40] VITALS: BP 144/75; PULSE 108; RESP 18; TEMP 36.9; O2SAT 98
== END 2019-03-10 18:25 | disposition home or self-care (01) | DRG 786 ==
PROVIDERS: Admitting Provider Obstetrics & Gynecology; Referring Provider Obstetrics & Gynecology; Visit Provider Obstetrics & Gynecology
PROC: (CPT 59514; principal; 2019-03-05 07:15)
DX: O62.0 Primary inadequate contractions (principal); O14.13 Severe pre-eclampsia, third trimester; O32.2XX0 Maternal care for transverse and oblique lie, not applicable or unspecified; O99.810 Abnormal glucose complicating pregnancy; O99.213 Obesity complicating pregnancy, third trimester; Z3A.39 39 weeks gestation of pregnancy; Z37.0 Single live birth
CPT/HCPCS: 59025; 59050; 80053; 82570; 84156; 85025; 85027; 86850; 86900; 88307; 94762; 99218; J7120; A4216; G0378; J2405

== ENCOUNTER → 2019-09-19 14:42 | Outpatient (CLI) | payer OTHER, SELFPAY ==
[2019-04-23 15:40] VITALS: BMI 50.3
== END ==
PROVIDERS: Referring Provider Obstetrics & Gynecology; Visit Provider Obstetrics & Gynecology
DX: N91.2 Amenorrhea, unspecified (principal)
CPT/HCPCS: 36415; 84702

== ENCOUNTER → 2019-10-01 16:53 | Outpatient (CLI) | payer OTHER, SELFPAY ==
[2019-04-23 15:40] VITALS: BMI 50.3
--- NOTE | 2019-10-01 16:55 | US_ITS ---
STUDY: FIRST TRIMESTER OBSTETRICAL ULTRASOUND REASON FOR EXAM: Female, 39 years old viability. LMP: June 30, 2019 TECHNIQUE: Transabdominal and Transvaginal TECHNICAL QUALITY: Adequate. PRIOR ULTRASOUND: None. FINDINGS: There is visualization of a single gestational sac in a normal intrauterine position. The mean sac diameter (MSD) measures 6.1 cm. There is a visualized yolk sac. The yolk sac measures 2.78 cm. The placenta is non-visualized. There is visualization of a live embryo. The crown-rump length (CRL) measures 6.9 cm, indicating an estimated gestational age (EGA) of 13 weeks, 2 days. There is demonstrated cardiac activity with a heart rate of 163 bpm. The estimated gestation age (EGA) by LMP is 13 weeks, 2 days. The estimated date of delivery (ANTONIA) by LMP is April 05, 2020. The estimated gestation age (EGA) by US is 30 weeks, 2 days. The estimated date of delivery (ANTONIA) by US is April 05, 2020. The uterus measures 15.4 cm x 9.2 cm x 7.4 cm. There is no demonstrated uterine fibroid. The cervix is closed. There is evidence of a 1.5 cm x 1.5 cm x 0.9 cm complex nabothian cyst. The ovaries were not visualized. There is no fluid in the cul de sac. US/Init OB < 14Wks US IMPRESSION: Single live intrauterine gestation with a mean gestational age of 13 weeks and 2 days. Electronically Signed: Jack Daneil, at 13:23 EST , Service support ,
== END ==
PROVIDERS: Referring Provider Obstetrics & Gynecology; Visit Provider Obstetrics & Gynecology
DX: Z78.9 Other specified health status (principal)
CPT/HCPCS: 76801; 76817

== ENCOUNTER → 2019-10-07 17:05 | Outpatient (CLI) | payer OTHER, SELFPAY ==
[2019-10-07 16:15] VITALS: BMI 49.4
[2019-10-07 17:51] LABS: Protein, Urine (Random) 29.3 mg/dL (<11.9); Protein:Creat Ratio 101 mg/g CRE (0-200)
[2019-10-07 18:12] LABS: Absolute Lymphocyte Count 1.85 X10^3/uL (0.83-4.51); Absolute Neutrophil Count 8.5 X10^3/uL (2.0-7.7); Basophil# 0.04 X10^3/uL; Basophil% 0.3 % (0-1); Eosinophils% 2.6 % (0-5); Hematocrit 37.6 % (37-47); Hemoglobin 11.9 g/dL (12.0-15.0); Lymphocyte # 1.85 X10^3/ul (4.0); Lymphocyte % 16.1 % (19-41); Mean Corp Hgb Conc 31.6 g/dL (32-36); Mean Corpuscular Hgb 25.9 pg (27.0-32.0); Mean Corpuscular Volume 81.9 fL (81-99); Mean Platelet Vol. 9.8 fl (6.2-12.0); Monocyte# 0.79 X10^3/uL; Monocyte% 6.9 % (0-10); NRBC Flagged by Analyzer 0 % (0-5); Neutrophil # 8.45 X10^3/uL (2.7-7.7); Neutrophil % 73.7 % (47-70); Platelet Count 296 K/mm3 (150-450); RBC Distribution Width CV 15.2 % (11.6-14.6); RBC Distribution Width SD 45.1 fl (35.1-43.9); Red Blood Count 4.59 M/mm3 (4.2-5.4); White Blood Count 11.5 K/mm3 (4.4-11.0)
[2019-10-07 18:25] LABS: Hemoglobin A1c 5.1 % (4.2-6.3)
[2019-10-07 19:18] LABS: ALB/GLOB Ratio 0.8 RATIO (0.9-2.4); AST(SGOT) 13 U/L (15-37); Alanine Aminotransfer ALT/SGPT 16 U/L (13-56); Albumin, Serum 3.1 g/dL (3.2-5.0); Alkaline Phosphatase 61 U/L (45-117); Anion Gap 8 (5-15); BUN 8 mg/dL (7-18); BUN/Creat Ratio 12.1 RATIO (10-20); Calcium,Total 8.7 mg/dL (8.5-10.1); Chloride 107 mmol/L (98-107); Creatinine, Serum 0.66 mg/dL (0.55-1.02); EST Glomerular Filtration Rate 107 mL/min (>60); Est Glom Filt Rate - Afr Amer 129 mL/min (>60); Globulin 4.1 g/dL (2.2-4.2); Glucose 83 mg/dL (74-106); Potassium 3.7 mmol/L (3.5-5.1); Protein, Total 7.2 g/dL (6.4-8.2); Sodium Level 137 mmol/L (136-145); Thyroid Stim Hormone (TSH) 0.92 uIU/mL (0.358-3.74)
[2019-10-07 20:50] LABS: Chlamydia Trachomatis by PCR Negative (Negative); Neisserai gonorrhoeae by PCR Negative (Negative); Probe Check PASS; Sample Adequacy Control PASS; Specimen Processing Control PASS
[2019-10-08 11:22] LABS: HIV - WCH Non-Reactive (Nonreactive); Hepatitis B Surface Antigen Non-Reactive (Nonreactive); Rubella IgG 101.3 IU/mL
[2019-10-09 01:54] LABS: Rapid Plasmin Reagin (RPR) NONREACTIVE (NONREACTIVE)
== END ==
PROVIDERS: Referring Provider Obstetrics & Gynecology; Visit Provider Obstetrics & Gynecology
DX: O09.522 Supervision of elderly multigravida, second trimester (principal); O09.90 Supervision of high risk pregnancy, unspecified, unspecified trimester; O09.299 Supervision of pregnancy with other poor reproductive or obstetric history, unspecified trimester; Z31.430 Encounter of female for testing for genetic disease carrier status for procreative management; Z3A.00 Weeks of gestation of pregnancy not specified
CPT/HCPCS: 36415; 80053; 82570; 83036; 84156; 84443; 85025; 86592; 86703; 86762; 86850; 86900; 86901; 87086; 87088; 87340; 87491; 87591

== ENCOUNTER → 2019-11-24 16:11 | Outpatient (CLI) | payer OTHER, SELFPAY ==
[2019-11-17 16:23] VITALS: BMI 49.4
--- NOTE | 2019-11-24 16:11 | US_ITS ---
STUDY: SECOND AND THIRD TRIMESTER OBSTETRICAL ULTRASOUND REASON FOR EXAM: Female, 39 years old. Anatomy LMP: June 30, 2019. TECHNIQUE: PICC line TECHNICAL QUALITY: Adequate. PRIOR ULTRASOUND: October 09, 2019. FINDINGS: There is a single intrauterine fetus. The fetus is in a cephalic presentation. There is demonstrated cardiac activity with a heart rate of 158 bpm. There is a normal amniotic fluid volume. The largest amniotic fluid pocket measures 5.5 cm. The placenta is anterior in location and is not low lying. There are Grade 0 placental changes. The cervix measures 4.04 cm in length. The adnexal regions are not visualized. BIOMETRY: BPD: 4.71 cm: 20 weeks, 2 days HC: 17.29 cm: 19 weeks, 6 days AC: 16.59 cm: 21 weeks, 5 days FL: 3.31 cm: 20 weeks, 3 days CI: FL/BPD: 70 FL/HC: FL/AC: 20 HC/AC: 1.04 age by current US: 20 weeks, 4 days. ANTONIA by current US: April 09, 2020. Estimated weight: 385 grams, +/- 56 grams, 30 %. age by prior US: 21 weeks, 0 days. ANTONIA by prior US: April 05, 2020. Age by LMP: 21 weeks, 0 days. ANTONIA by LMP: April 05, 2020. ANATOMY: Gender: Female Cranium: Normal lateral ventricles. Normal choroid plexus. Normal cerebellum. Normal cisterna magna. Normal face, nose and lips. Chest: Normal 4-chamber heart. Abdomen/Pelvis: Normal diaphragm. Normal stomach. Normal abdominal wall. Normal cord insertion. Normal 3 vessel cord. Normal kidneys. Normal bladder. Spine: The spine was visualized and appears normal, however, transverse views were limited. Extremities: Normal bilateral upper extremities. Normal bilateral lower extremities. US/OB Anatomy Scan IMPRESSION: 1. Live single intrauterine 20 weeks, 4 days. ANTONIA is April 08, 2020. There is adequate interval growth since prior ultrasound. 2. EFW 385 g. 3. Adequate amniotic fluid. 4. Anterior grade 0 placenta. 5. Vertex presentation. 6. Normal anatomy. There is limited visualization of the spine and repeat imaging should be considered. Electronically Signed: Bob Paez DO at 22:50 EST Tel [phone], Service support ,
== END ==
PROVIDERS: Referring Provider Nurse Practitioner Women's Health; Visit Provider Nurse Practitioner Women's Health
DX: Z34.90 Encounter for supervision of normal pregnancy, unspecified, unspecified trimester (principal)
CPT/HCPCS: 76805

== ENCOUNTER → 2019-12-22 | Outpatient (CLI) | payer OTHER, SELFPAY ==
[2019-12-22 15:37] VITALS: BMI 51.3
[2019-12-22 17:43] LABS: Protein, Urine (Random) < 6.0 mg/dL (<11.9)
== END | disposition home or self-care (01) ==
LOC: LABSPEC 16:51
PROVIDERS: Referring Provider Obstetrics & Gynecology; Visit Provider Obstetrics & Gynecology
DX: O16.2 Unspecified maternal hypertension, second trimester (principal); Z3A.00 Weeks of gestation of pregnancy not specified
CPT/HCPCS: 82570; 84156

== ENCOUNTER → 2020-01-05 15:13 | Outpatient (CLI) | payer OTHER, SELFPAY ==
[2019-12-22 15:37] VITALS: BMI 51.3
[2020-01-05 15:31] LABS: Absolute Lymphocyte Count 1.71 X10^3/uL (0.83-4.51); Basophil# 0.04 X10^3/uL; Basophil% 0.3 % (0-1); Eosinophil# 0.24 X10^3/uL; Eosinophils% 1.9 % (0-5); Hematocrit 36.9 % (37-47); Hemoglobin 11.5 g/dL (12.0-15.0); Lymphocyte # 1.71 X10^3/ul (4.0); Lymphocyte % 13.3 % (19-41); Mean Corp Hgb Conc 31.2 g/dL (32-36); Mean Corpuscular Volume 83.5 fL (81-99); Mean Platelet Vol. 9.8 fl (6.2-12.0); Monocyte% 6.2 % (0-10); NRBC Flagged by Analyzer 0 % (0-5); Neutrophil # 9.99 X10^3/uL (2.7-7.7); Neutrophil % 77.6 % (47-70); Platelet Count 305 K/mm3 (150-450); RBC Distribution Width CV 16.4 % (11.6-14.6); RBC Distribution Width SD 49.5 fl (35.1-43.9); Red Blood Count 4.42 M/mm3 (4.2-5.4); White Blood Count 12.9 K/mm3 (4.4-11.0)
[2020-01-05 15:53] LABS: Glucose Challenge Gest 1H 50g 127 mg/dL (70-140)
[2020-01-06 09:45] LABS: Hepatitis B Surface Antigen Non-Reactive (Nonreactive)
== END ==
PROVIDERS: Referring Provider Obstetrics & Gynecology; Visit Provider Obstetrics & Gynecology
DX: O09.90 Supervision of high risk pregnancy, unspecified, unspecified trimester (principal); Z3A.00 Weeks of gestation of pregnancy not specified
CPT/HCPCS: 36415; 82950; 85025; 87340

== ENCOUNTER → 2020-02-16 13:58 | Outpatient (CLI) | payer OTHER, SELFPAY ==
[2020-01-05 15:58] VITALS: BMI 51.3
[2020-02-02 15:47] VITALS: BMI 51.3
--- NOTE | 2020-02-16 13:59 | US_ITS ---
STUDY: SECOND AND THIRD TRIMESTER OBSTETRICAL ULTRASOUND REASON FOR EXAM: Female, 39 years old growth LMP: June 30, 2019 TECHNIQUE: Transabdominal TECHNICAL QUALITY: Adequate. PRIOR ULTRASOUND: Comparison is made with prior examination dated November 24, 2019. FINDINGS: There is a single intrauterine fetus. The fetus is in a transverse lie with the head on the maternal right side. There is demonstrated cardiac activity with a heart rate of 126 bpm. There is a normal amniotic fluid volume. The largest amniotic fluid pocket measures 6.9 cm. The amniotic fluid index (NELDA) is 17.16 cm. The placenta is anterior in location and is not low lying. There are Grade 1 placental changes. The cervix measures 4.8 cm in length. The bilateral adnexal regions are normal. BIOMETRY: BPD: 8.13 cm: 32 weeks, 5 days HC: 31.24 cm: 35 weeks, 0 days AC: 31.22 cm: 35 weeks, 2 days FL: 6.39 cm: 30 weeks, 1 days CI: 76% FL/BPD: 79% FL/HC: FL/AC: 20% HC/AC: 1.0 age by current US: 34 weeks, 1 days. ANTONIA by current US: March 28, 2020. Estimated weight: 2398 grams, +/- 350 grams, 81 %. age by prior US: 32 weeks, 4 days. ANTONIA by prior US: April 08, 2020. Age by LMP: 33 weeks, 0 days. ANTONIA by LMP: April 05, 2020. US/OB Limited With Biometrics IMPRESSION: Single live intrauterine gestation with a mean gestational age of 32 weeks and 4 days. The measurements obtained today fall within the normal expected range. Electronically Signed: Jack Daniel, at 16:04 EDT , Service support ,
== END ==
PROVIDERS: Referring Provider Obstetrics & Gynecology; Visit Provider Obstetrics & Gynecology
DX: O09.93 Supervision of high risk pregnancy, unspecified, third trimester (principal); Z3A.32 32 weeks gestation of pregnancy
CPT/HCPCS: 76816

== ENCOUNTER → 2020-02-23 18:06 | Outpatient (CLI) | payer OTHER, SELFPAY ==
[2020-02-16 15:17] VITALS: BMI 51.3
--- NOTE | 2020-02-23 18:08 | US_ITS ---
STUDY: OBSTETRICAL ULTRASOUND - BIOPHYSICAL PROFILE REASON FOR EXAM: Female, 39 years old NELDA BPP LMP: PRIOR ULTRASOUND: February 16, 2020 TECHNIQUE: Transabdominal TECHNICAL QUALITY: Adequate. FINDINGS: There is a single intrauterine fetus. The fetus is in a transverse lie. There is demonstrated cardiac activity with a heart rate of 132 bpm. There is a normal amniotic fluid volume. The largest amniotic fluid pocket measures 5.6 x 4.7 cm. The amniotic fluid index (NELDA) is 17.9 cm. The placenta is anterior and fundal There are Grade 1 placental changes. Age by LMP: 34 weeks, 0 days. ANTONIA by LMP: April 05, 2020. BIOPHYSICAL PROFILE: Breathing Movements (FBM): 2 Gross Body Movements (GBM): 2 Tone (FT): 2 Amniotic Fluid Volume (AFV): 2 TOTAL SCORE: 8 / 8 US/Biophysical Profile IMPRESSION: Normal biophysical profile of 06/19. Electronically Signed: Randy Leung MD at 18:53 EDT , Service support ,
== END ==
PROVIDERS: Referring Provider Obstetrics & Gynecology; Visit Provider Obstetrics & Gynecology
DX: O09.529 Supervision of elderly multigravida, unspecified trimester (principal); O09.299 Supervision of pregnancy with other poor reproductive or obstetric history, unspecified trimester; O16.9 Unspecified maternal hypertension, unspecified trimester; Z3A.00 Weeks of gestation of pregnancy not specified
CPT/HCPCS: 76818

== ENCOUNTER → 2020-03-05 14:05 | Outpatient (CLI) | payer OTHER, SELFPAY ==
[2020-02-16 15:17] VITALS: BMI 51.3
--- NOTE | 2020-03-05 14:27 | US_ITS ---
STUDY: OBSTETRICAL ULTRASOUND - BIOPHYSICAL PROFILE REASON FOR EXAM: Female, 39 years old advanced maternal age. History of hypertension. LMP: June 30, 2019. PRIOR ULTRASOUND: October 01, 2019, November 24, 2019, February 16, 2020 and February 23, 2020. TECHNIQUE: Transabdominal TECHNICAL QUALITY: Adequate. FINDINGS: There is a single intrauterine fetus. The fetus is in a cephalic presentation. There is demonstrated cardiac activity with a heart rate of 132 bpm. There is a normal amniotic fluid volume. The largest amniotic fluid pocket measures 6.78 cm. The amniotic fluid index (NELDA) is cm. The placenta is 17.44 There are Grade 1 placental changes. Age by LMP: 35 weeks, 4 days. ANTONIA by LMP: April 05, 2020. age by initial US: 35 weeks, 4 days. ANTONIA by initial US: April 05, 2020.. BIOPHYSICAL PROFILE: Breathing Movements (FBM): 2 Gross Body Movements (GBM): 2 Tone (FT): 2 Amniotic Fluid Volume (AFV): 2 TOTAL SCORE: / 8 US/Biophysical Profile IMPRESSION: Normal biophysical profile of 06/19. Electronically Signed: Bob Paez DO at 17:13 EDT Tel [phone], Service support ,
== END ==
PROVIDERS: Referring Provider Obstetrics & Gynecology; Visit Provider Obstetrics & Gynecology
DX: O09.523 Supervision of elderly multigravida, third trimester (principal); O16.3 Unspecified maternal hypertension, third trimester; O99.213 Obesity complicating pregnancy, third trimester; Z3A.35 35 weeks gestation of pregnancy
CPT/HCPCS: 76818

== ENCOUNTER 2020-03-12 17:20 | Inpatient (IN) | payer OTHER, SELFPAY ==
[2020-01-05 15:58] VITALS: BMI 51.3
[2020-02-16 15:17] VITALS: BMI 51.3
[2020-03-12] VITALS (33 sets, daily range): BP systolic 135–191; BP diastolic 74–106; PULSE 100–139; RESP 16–24; TEMP 36.5–37.4; O2SAT 92–99; BMI 51.3; BMI 55.5
--- NOTE | 2020-03-12 14:09 | US_ITS ---
STUDY: SECOND AND THIRD TRIMESTER OBSTETRICAL ULTRASOUND REASON FOR EXAM: Female, 39 years old advanced maternal age. Hypertension. LMP: June 30, 2019. TECHNIQUE: Transabdominal TECHNICAL QUALITY: Adequate. PRIOR ULTRASOUND: October 01, 2019, November 24, 2019, February 16, 2020, February 23, 2020 and March 05, 2020 FINDINGS: There is a single intrauterine fetus. The fetus is in a breech presentation. There is demonstrated cardiac activity with a heart rate of 158 bpm. There is a normal amniotic fluid volume. The largest amniotic fluid pocket measures 6.2 cm. The amniotic fluid index (NELDA) is 17.02 cm. The placenta is anterior in location and is not low lying. There are Grade 1 placental changes. The cervix is obscured. BIOMETRY: BPD: 9.06 cm: 36 weeks, 6 days HC: 32.78 cm: 37 weeks, 2 days AC: 34.97 cm: 39 weeks, 0 days FL: 7.49 cm: 38 weeks, 3 days CI: 81 FL/BPD: 83 FL/HC: FL/AC: 21 HC/AC: 0.94 age by current US: 38 weeks, 0 days. ANTONIA by current US: March 26, 2020. Estimated weight: 3448 grams, +/- 504 grams, 91 %. age by initial US: 36 weeks, 4 days. ANTONIA by initial US: April 05, 2020.. Age by LMP: 37 weeks, 4 days. ANTONIA by LMP: April 05, 2020. US/OB Limited With Biometrics IMPRESSION: 1. Live single intrauterine at 38 weeks, 0 days. This is 10 days ahead of expected gestational age by initial ultrasound. 2. EFW 3448 g. 3. NELDA of 17.02 cm. 4. Anterior grade 1 placenta. 5. Breech presentation. Electronically Signed: Bob Paez DO at 16:52 EDT Tel [phone], Service support ,
[2020-03-12 17:07] LABS: Hematocrit 35.8 % (37-47); Hemoglobin 11.3 g/dL (12.0-15.0); Mean Corp Hgb Conc 31.6 g/dL (32-36); Mean Corpuscular Hgb 25.6 pg (27.0-32.0); Platelet Count 317 K/mm3 (150-450); RBC Distribution Width CV 15.4 % (11.6-14.6); RBC Distribution Width SD 44.5 fl (35.1-43.9); Red Blood Count 4.42 M/mm3 (4.2-5.4); White Blood Count 13.9 K/mm3 (4.4-11.0)
[2020-03-12 17:15] LABS: Prothrombin Time (Protime)PT. 12.6 SECONDS (11.7-14.9)
[2020-03-12 17:16] LABS: Protein, Urine (Random) 63.1 mg/dL (<11.9); Protein:Creat Ratio 298 mg/g CRE (0-200)
[2020-03-12 17:16] LABS: Partial Thromboplast Time 27.2 Seconds (24.1-36.2)
[2020-03-12] MEDS: Lactated Ringers 1,000 ML 999 ML IV (17:40)
[2020-03-12] MEDS: Magnesium Sulfate 4gm/100mL 4 GM/100 ML IV.SOLN. IV (17:56)
--- NOTE | 2020-03-12 18:03 | PCM.HPOB.BLA ---
- Problem List (1) Preeclampsia, severe Status: Acute (2) AMA (advanced maternal age) multigravida 35+ Status: Acute Qualifiers: Comment: genetic counseling provided. nipt low risk. additional testing (3) H/O: Status: Acute Comment: plan repeat c/s 38 weeks transverse presentation- SCHEDULED FOR 03/22/2020 AT NOON (4) History of pre-eclampsia in prior , currently Status: Acute Comment: baseline labs WNL, baby asa starting at 14 weeks (5) Hypertension affecting Status: Acute Comment: procardia XL started 27 weeks, plan 38 week delivery, plan weekly nst/shannan after 32 weeks (6) Obesity affecting Status: Acute Qualifiers: Comment: 1st trim GCt WNL, encourage healthy weight gain; NST wkly 32 wk, growth q4wk (7) Status: Acute Qualifiers: Comment: genetic testing low risk neg carrier screening. declined afp screen. 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 Is patient in pain?: No Allergies No Known Allergies Allergy (Verified 03/12/20 15:01) Medications vitamin#30 30 mg iron-10 mg iron-folic acid 1 mg-omg3 capsule 1 cap PO DAILY cap 09/16/18 [History Confirmed 03/12/20] nifedipine 30 mg tablet,extended release 24 hr 30 mg PO DAILY #30 tab 01/05/20 [Rx Confirmed 03/12/20] Last Menstral Period: 06/25/19 Zika: Zika virus screening: Negative : No PFSH PFSH Medical History benign neck tumor (Acute) Surgical History H/O: (Acute) History of tonsillectomy (Acute) Status post wrist surgery (Acute) Family History Unknown Cancer skin non hodgkins lymphoma lung Grandfather Diabetes Other Hypertension Social History (Updated 03/12/20 @ 17:[address] 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 Date Name GA/Weeks Outcome Route Bth Weight Infant Gen Labor Lgth Anesthesia Del Locatn Provider FOB 03/07/19 Tyja 39 live - full term 7lbs 6.5oz Male epidural [facility] Delivery Date: 03/07/19 On 04/23/19 @ 15:29 HuseyinElzbieta garciah AoD HPI 36 WK OB/NST: Details: ERASMO MCKEON is a 39 year old who presents for routine OB visit 36 weeks 4 days and was found to have pressures in the 140s to 170s over 100s to 120s. Patient was admitted and proteinuria was noted and she was started on magnesium sulfate. Decision for repeat was made. OB Visit ANTONIA Calculator Estimated Delivery Date Method Current WG Current Estimate 04/05/20 Ultrasound #1 36w 4d Expected Delivery Route/Plan RLTCS Labor Preferences- labor support person: [] pain management options preferred: [] cut cord/dad catch: [] : [] PP control planned: [] discussed possible routes of delivery and associated risks: [] special requests: [] Specific Issue/Plans flu vaccine: declines tdap vaccine: declined has had in the last ten years rhogam: na LARC form signed: [] movement and labor precautions reviewed. Problem list reviewed and updated with the most current plan of care details and appropriate orders placed. Relevant counseling for the gestational age provided. Continue routine care and follow up unless otherwise noted in visit notes/problem list details Initial Weight: 253 lb Date EGA Weight BP Urine Prot Glucose FHR FuHt Pres Dilation Effaced St Visit Note 10/07/19 14w 1d 253 lb (+0 oz) 140/80 160 11/17/19 20w 0d 253 lb 8 oz (+8 oz) 120/80 Negative Negative 157 Good FM. Needs anatomy US scheduled. NO VB, LOF. 12/22/19 25w 0d 263 lb (+10 lb) 145/80 150 SM- no vb lof cramping. nl bps at home- will keep checking and come in if symptoms change. urine protein sent 01/05/20 27w 0d 265 lb (+12 lb) 142/86 150 SM- no vb lof good fm no regular ctx, consider cHTN- start procardia XL 02/02/20 31w 0d 267 lb (+14 lb) 114/80 140 SM- no vb lof good fm no regular ctx procardia working well. 02/16/20 33w 0d 273 lb 1 oz (+20 lb 1 oz) 124/74 Negative Negative 140 SM- no vb lof good fm n oregular ctx. SM- no vb lof good fm n oregular ctx. bp well controlled. ACOG First Trimester First Trimester: Desire for , Alcohol, Tobacco Cessation, Illicit/Recreational Drug/Substance Use, Intimate Partner Violence, Barriers to care, Unstable Housing, Communication Barriers, Environmental/Work Hazards, Anticipated Course of Care, Toxoplasmosis Precations, Use of Any medications, Sexual activity, Exercise, Dental Care, Sauna/Hot tub use, Seat Belt use, Childbirth classes/Hospital facilities, , Travel, Indications for US and Screening for Aneuploidy Second Trimester Second Trimester: Signs and Symptoms of Labor, Selecting a care provider, Reproductive Life Planning, Care Planning, Tobacco Cessation, Depression/Anxiety and Intimate Partner Violence Third Trimester Third Trimester: Pain Management Plans, Labor support person(s), Immediate Larc, Movement Monitoring and Infant Feeding Yes ; discussed Trial of Labor after Counseling or discussed Circumcision preference Diagnostics Diagnostics Diagnostics Blood Type A POSITIVE 10/07/19 Antibody Screen NEGATIVE 10/07/19 Glucose 1 Hr 50 gm 127 mg/dL (70-140) 01/05/20 HIV 1&2 Antibody Non-Reactive (Nonreactive) 10/07/19 Rubella IgG Antibody 101.3 IU/mL 10/07/19 Hgb 11.3 g/dL (12.0-15.0) L 03/12/20 Hct 35.8 % (37-47) L 03/12/20 RPR NONREACTIVE (NONREACTIVE) 10/07/19 Details: HIV: Urine Culture: Sequential Screen: NIPT Screen: ROS Const Reports system reviewed and no additional complaints, except as docu Card Reports system reviewed and no additional complaints, except as docu Resp Reports system reviewed and no additional complaints, except as docu GI Reports system reviewed and no additional complaints, except as docu, Reports nausea Reports system reviewed and no additional complaints, except as docu Musc Reports system reviewed and no additional complaints, except as docu Exam Const General: cooperative, healthy appearing, comfortable, anxious HENMT Head: normal to inspection Nose: external nose normal Face and sinus: normal facial exam Neck Neck: normal visual inspection, full ROM, no lymphadenopathy Thyroid: thyroid normal Chest Chest palpation & inspection: normal inspection of the chest Resp Effort & Inspection: normal respiratory effort GI Inspection: normal to inspection Palpation: soft, other (gravid uterus) Other: vertex and appropriate size for gestational age Other: Cervical Exam: Extrem General: pedal edema Results POC Urinalysis 2 Dip (Clinic) Office Urine Glucose Negative Last Edit by Chiquis Stringer on 03/12/20 15:58 Office Urine Protein 1+ Last Edit by Chiquis Stringer on 03/12/20 15:58 Assessment & Plan Problems 1. Hypertension affecting O16.9 2. 36 weeks gestation of Z3A.36 3. Obesity affecting in first trimester O99.211 4. History of pre-eclampsia in prior , currently O09.299 5. Supervision of high risk , antepartum O09.90 6. Multigravida of advanced maternal age in first trimester O09.521 7. H/O: Z98.891 Chronic hypertension with superimposed preeclampsia with severe features Magnesium sulfate started on labetalol protocol started. Plan proceeding with immediate repeat low transverse Orders Orders: POC Urinalysis 2 Dip (Clinic) Today OB NST Today O09.299, O16.9, O99.211, Z3A.36 Culture, Group B Streptococcus Today Z3A.36 Protein+Creatinine Ratio,Urine Today O09.299 Coding Level of Care Code OB Routine Diagnoses Hypertension affecting O16.9 36 weeks gestation of Z3A.36 ??Weeks of gestation: 36 weeks Obesity affecting in first trimester O99.211 ??Trimester: first trimester History of pre-eclampsia in prior , currently O09.299 Supervision of high risk , antepartum O09.90 Multigravida of advanced maternal age in first trimester O09.521 ??Trimester: first trimester H/O: Z98.891
--- NOTE | 2020-03-12 18:05 | OP.PCM_ITS ---
Problem List (1) Preeclampsia, severe Status: Acute (2) AMA (advanced maternal age) multigravida 35+ Status: Acute Qualifiers: Comment: genetic counseling provided. nipt low risk. additional testing (3) H/O: Status: Acute Comment: plan repeat c/s 38 weeks transverse presentation- SCHEDULED FOR 03/22/2020 AT NOON (4) History of pre-eclampsia in prior , currently Status: Acute Comment: baseline labs WNL, baby asa starting at 14 weeks (5) Hypertension affecting Status: Acute Comment: procardia XL started 27 weeks, plan 38 week delivery, plan weekly nst/shannan after 32 weeks (6) Obesity affecting Status: Acute Qualifiers: Comment: 1st trim GCt WNL, encourage healthy weight gain; NST wkly 32 wk, growth q4wk (7) Status: Acute Qualifiers: Comment: genetic testing low risk neg carrier screening. declined afp screen. anatomy US normal, repeat 2 wks to complete spinal views (8) Supervision of high risk , antepartum Status: Acute Comment: PRR ANTONIA 04/05/2020 girl Cruz Ayoub Spouse: Cash Delivery Classification: BLADE Final ANTONIA: 04/05/20 Gestational age: 36 Weeks and 4 Days food service order clerk: Nikki Wiggins Special Medications: magnesium sulfate Implants Used: none Date of Procedure: 03/12/20 Pre-Operative Diagnosis: severe preeclampsia breech previous Indications for : Repeat Elective , Breech Description of Procedure: The patient is a 39-year-old G2, P1 at 36 and 4 presents with chronic hypertension and superimposed preeclampsia with severe features and breech presentation and previous so we will proceed with a repeat . Spinal anesthesia was placed without difficulty. Quintanilla catheter was placed. The patient was placed in the dorsal supine position with leftward tilt. Patient was prepped and draped in the normal sterile fashion. Pfannenstiel skin incision was made with the scalpel and carried through to the underlying layer of fascia with the scalpel. Fascia was nicked in the midline and the incision extended laterally. The rectus bellies were dissected off superiorly and inferiorly with out complication both sharply and bluntly. The peritoneum was entered digitally. The incision was stretched and a low transverse uterine incision was made with the scalpel. The 's buttocks was delivered atraumatically followed by the body and anterior and posterior shoulders without complication the rest of the delivered. The cord was clamped and cut and the was handed off to awaiting nurse. The placenta was delivered spontaneously immediately following and was noted to be intact and have a three- vessel cord. The uterus was exteriorized cleared of all clots and debris, and the incision was closed in a double layer closure using #1 Monocryl. The ovaries and fallopian tubes were noted to be within normal limits. The uterus was returned to the maternal abdomen and gutters were cleared of all clots and debris. The peritoneum was closed with 3-0 Monocryl in a running fashion. Gloves were changed prior to fascial closure. Fascia was closed with 0 PDS in a running fashion. Subcutaneous tissue was copiously irrigated and the skin was closed with 3-0 Monocryl in a subcuticular fashion. Mepilex dressing was applied without complication. Patient was taken to recovery in stable condition. It was discussed with the patient that based on the clinical information obtained during this encounter, combined with her history, at this time I would recommend cesareans for future deliveries if further pregnancies are desired. Amniotic Membrane Rupture Type: Artificial Amniotic Fluid Description: Clear Placenta Disposition: [facility] Inf[facility] Gender: Female Delayed cord clamping: Yes Antibiotic Given: Ancef 3 grams IV x1 Pt instructed on risks of surgery: Bleeding, Anesthesia Risks, Infection, Injury to surrounding structure(s) including bowel and bladder - Admit VTE Documentation VTE Present on Admission: No VTE Mechan Device Prophylaxis: SCD's Multi Select Codes - Urinary/Genital Urinary/Genital CPT Codes: 42179 Delivery [facility]
[2020-03-12] MEDS: Magnesium Sulfate 4gm/100mL 2 GM/50 ML IV.SOLN. IV (18:13)
[2020-03-12] MEDS: Magnesium Sulfate 20 GM/500 ML BAG IV (18:28)
[2020-03-12] MEDS: Sodium Citrate/Citric Acid 30 ML UDC PO (18:31)
[2020-03-12 18:33] LABS: AST(SGOT) 17 U/L (15-37); Alanine Aminotransfer ALT/SGPT 13 U/L (13-56); Creatinine, Serum 0.86 mg/dL (0.55-1.02); EST Glomerular Filtration Rate 79 mL/min (>60); Est Glom Filt Rate - Afr Amer 95 mL/min (>60); Estimated Creatinine Clearance 64.33 ml/min
[2020-03-12] MEDS: Oxytocin 30 units/NS 500 ml 30 UNITS/500 ML IV.SOLN 167 UNITS IV (20:10)
--- NOTE | 2020-03-12 20:57 | NURSING ---
2054- called dr montaño regarding needing pain scale for pain medication. also informed of last bp reading 161/90, will give dilaudid and reassess bp and start hypertension protocol if needed per standing order.
[2020-03-12] MEDS: HYDROmorphone 0.5 MG/0.5 ML SYRINGE IV (21:20)
[2020-03-12] MEDS: Labetalol 100 MG Tablet PO (22:51)
[2020-03-12] MEDS: Lactated Ringers 1,000 ML 15 ML IV (23:30)
[2020-03-13] VITALS (25 sets, daily range): BP systolic 116–153; BP diastolic 58–96; PULSE 76–110; RESP 16–20; TEMP 36.5–37.1; O2SAT 81–97
[2020-03-13] MEDS: Ketorolac 30 MG/ML Syringe IV ×5 (00:55→23:47)
[2020-03-13] MEDS: Sodium Chloride 0.65% 1 SPRAY SPRAY.BTL 2 SPRAY NASAL (01:37)
[2020-03-13] MEDS: Acetaminophen 500 MG Tablet 1000 MG PO ×2 (04:12→15:53)
[2020-03-13] MEDS: Magnesium Sulfate 20 GM/500 ML BAG IV (04:38)
--- NOTE | 2020-03-13 05:12 | CPS ---
gave incentive spirometer to RN.
[2020-03-13 06:48] LABS: Hematocrit 29.4 % (37-47); Hemoglobin 9.1 g/dL (12.0-15.0); Mean Corpuscular Hgb 25.3 pg (27.0-32.0); Mean Corpuscular Volume 81.9 fL (81-99); Mean Platelet Vol. 10.1 fl (6.2-12.0); Platelet Count 252 K/mm3 (150-450); RBC Distribution Width CV 15.5 % (11.6-14.6); RBC Distribution Width SD 46.4 fl (35.1-43.9); Red Blood Count 3.59 M/mm3 (4.2-5.4); White Blood Count 11.8 K/mm3 (4.4-11.0)
[2020-03-13 07:04] LABS: AST(SGOT) 12 U/L (15-37); Alanine Aminotransfer ALT/SGPT 11 U/L (13-56); Creatinine, Serum 0.82 mg/dL (0.55-1.02); EST Glomerular Filtration Rate 83 mL/min (>60); Est Glom Filt Rate - Afr Amer 101 mL/min (>60); Estimated Creatinine Clearance 67.47 ml/min
[2020-03-13] MEDS: Enoxaparin 40 MG/0.4 ML Syringe SC ×2 (07:22→21:07)
[2020-03-13] MEDS: Lactated Ringers 500 ML IV (07:42)
[2020-03-13] MEDS: HYDROmorphone 0.5 MG/0.5 ML SYRINGE IV ×2 (08:21→21:06)
[2020-03-13] MEDS: Labetalol 100 MG Tablet PO ×2 (09:28→21:06)
--- NOTE | 2020-03-13 10:10 | PCM.PN.OB ---
Patient Problems: Active and Suspected Problems (Last Reviewed 03/12/20 @ 15:02 by Emily Jin) Preeclampsia, severe (Acute) Subjective: doing well no complaints pain controlled no CP SOB N V ambulating well tolerating po lochia moderate, going well - Physical Exam Vitals/I&O's: Vital Signs Temp Pulse Resp BP Pulse Ox 98.6 F 88 16 136/69 H 93 03/13/20 08:34 03/13/20 09:28 03/13/20 08:34 03/13/20 09:28 03/13/20 09:27 Oxygen Delivery Method Room Air Weight: 284 lb 6.341 oz Body Mass Index (BMI) 55.5 Intake and Output for Last 24 Hours 03/11/20 03/12/20 03/13/20 23:59 23:59 23:59 Intake Total 2029.89 / 2029.89 1570.42 / 1570.42 Output Total 840 / 840 860 / 860 Balance 1189.89 / 1189.89 710.42 / 710.42 General: Alert, Oriented x3 Laboratory Results 03/12/20 16:45: U Random Total Protein 63.1 H, Urine Creatinine 212.00, Protein/Creatinin Ratio 298 H 03/12/20 16:55: WBC 13.9 H, RBC 4.42, Hgb 11.3 L, Hct 35.8 L, MCV 81.0, MCH 25.6 L, MCHC 31.6 L, RDW Std Deviation 44.5 H, RDW Coeff of Memo 15.4 H, Plt Count 317, MPV 10.0 03/12/20 16:55: PT 12.6, INR 1.0, APTT 27.2 03/12/20 16:55: Creatinine 0.86, Estim Creat Clear Calc 64.33, Est GFR (MDRD) Af Amer 95, Est GFR (MDRD) Non-Af 79, Uric Acid 7.0 H, AST 17, ALT 13 03/12/20 17:50: Blood Type A POSITIVE, Antibody Screen NEGATIVE 03/13/20 06:35: WBC 11.8 H, RBC 3.59 L, Hgb 9.1 L, Hct 29.4 L, MCV 81.9, MCH 25.3 L, MCHC 31.0 L, RDW Std Deviation 46.4 H, RDW Coeff of Memo 15.5 H, Plt Count 252, MPV 10.1 03/13/20 06:35: ALT 11 L 03/13/20 06:35: Creatinine 0.82, Estim Creat Clear Calc 67.47, Est GFR (MDRD) Af Amer 101, Est GFR (MDRD) Non-Af 83, AST 12 L Current Medications Acetaminophen (Tylenol) 1,000 mg PO Q8H PRN PRN Reason: Pain Score 1-3/10 Last Admin: 03/13/20 04:12 Dose: 1,000 mg Documented by: Bisacodyl (Dulcolax) 10 mg RECTAL UD PRN PRN Reason: If no BM Enoxaparin Sodium (Lovenox) 40 mg SC BID [facility] Last Admin: 03/13/20 07:22 Dose: 40 mg Documented by: Hydrocortisone (Hytone) 1 applic TOPICAL TID PRN PRN; Protocol PRN Reason: Discomfort Hydromorphone HCl (Dilaudid Inj) 0.5 mg IV Q1H PRN PRN PRN Reason: Pain Score 1-5/10 Last Admin: 03/13/20 08:21 Dose: 0.5 mg Documented by: Hydromorphone HCl (Dilaudid Inj) 1 mg IV Q1H PRN PRN PRN Reason: Pain Score 6-10/10 Lactated Ringer's () 1,000 mls @ 100 mls/hr IV .Q10H [facility] Last Infusion: 03/13/20 08:42 Dose: 100 mls/hr Documented by: Naloxone HCl 4 mg/ Dextrose 504 mls @ 0 mls/hr IV .Q0M PRN; Protocol PRN Reason: Respiratory depression Ketorolac Tromethamine (Toradol (Bkc)) 30 mg IV Q6 [facility] Stop: 03/14/20 18:01 Last Admin: 03/13/20 06:36 Dose: 30 mg Documented by: Labetalol HCl (Trandate) 100 mg PO BID [facility] Last Admin: 03/13/20 09:28 Dose: 100 mg Documented by: Labetalol HCl (Trandate) 20 mg IV Q10M PRN PRN PRN Reason: Elevated BP Naloxone HCl (Narcan) 0.02 mg IV Q1M PRN PRN Reason: RR <10 and pt unresponsive Naproxen (Naprosyn) 250 - 500 mg PO Q8H PRN PRN PRN Reason: Pain Score 1-3/10 Nifedipine (Procardia Xl) 30 mg PO DAILY [place] Ondansetron HCl (Zofran) 4 mg IV Q4H PRN PRN PRN Reason: Nausea Oxycodone HCl (Oxyir) 5 - 10 mg PO Q4H PRN PRN PRN Reason: Pain Score 4-10/10 Multivit/Folic Acid/Iron (Prenatabs Fa) 1 tablet PO DAILY@1200 [place] Prochlorperazine Edisylate (Compazine Iv) 10 mg IV Q6H PRN PRN PRN Reason: NAUSEA Senna/Docusate Sodium (Senokot-S, Arin-Colace) 0 tablet PO DAILY PRN PRN Reason: Constipation Simethicone (Mylicon) 80 mg PO PCHS PRN PRN Reason: Indigestion/stomach pain Sodium Chloride () 5 - 15 ml IV UD PRN PRN Reason: SALINE FLUSH Sodium Chloride (Mason Nasal [place]) 2 spray NASAL Q1H PRN PRN PRN Reason: NASAL DRYNESS Last Admin: 03/13/20 01:37 Dose: 2 spray Documented by: Medical Necessity - Tobacco Use Smoking Status: Never smoker Assessment/Plan All Active Problems (Last Reviewed 03/12/20 @ 15:02 by Emily Jin) Preeclampsia, severe (Acute) Hypertension affecting (Acute) (Acute) Obesity affecting (Acute) History of pre-eclampsia in prior , currently (Acute) Supervision of high risk , antepartum (Acute) AMA (advanced maternal age) multigravida 35+ (Acute) H/O: (Acute) screening encounter (Resolved) BMI 40.0-44.9, adult (Resolved) Elevated blood pressure affecting in third trimester, antepartum (Resolved) Sinusitis (Resolved) Subconjunctival hemorrhage of right eye (Resolved) s/p LTCS PPD # 1 1. routine post care 2. breast feeding- support given 3. rh positive 4. rubella immune preeclampsia with severe features- mag turned off due to side effects, all bps normal, on labetalol and procardia, labs stable
[2020-03-13] MEDS: NIFEdipine 30 MG Tablet PO (11:01)
[2020-03-13] MEDS: 0.9% Saline Lock 10 ML Syringe IV ×4 (12:52→23:48)
[2020-03-13] MEDS: Prenatal Vits Tablet 1 TABLET PO (12:52)
[2020-03-13] MEDS: Senna/Docusate Sodium 1 Tablet PO (15:53)
[2020-03-14] VITALS (9 sets, daily range): BP systolic 126–150; BP diastolic 64–81; PULSE 97–113; RESP 16–18; TEMP 36.7–37.1; O2SAT 93–98
[2020-03-14] MEDS: 0.9% Saline Lock 10 ML Syringe IV ×2 (06:07→12:29)
[2020-03-14] MEDS: Ketorolac 30 MG/ML Syringe IV ×2 (06:07→12:28)
--- NOTE | 2020-03-14 07:54 | DCINST_ITS ---
Discharge Diet: No Restrictions Discharge Activity: May Not Drive - for 2 weeks, May not drive while taking narcotic pain medications., May Shower, May Take a Tub Bath - in 7 days May resume sexual activity in: 4-6 weeks Lifting Restrictions: 20 pounds Additional Activity Instructions:: Nothing in the vagina for 4-6 weeks. You may return to work/school in 6 weeks. Call your doctor if your incision/area has: Continuous Slow Oozing, Sudden Increased Bleeding, Increased Pain/ Swelling, Increased Redness, Foul Smelling Discharge Call your doctor if you observe: Fever of 101 or Higher, Using more than one pad per hour - for 2 hours Suture Line Care: Avoid Pulling/Pushing, Avoid Pinching/Bending Cleanse incision/area with: Keep Dressing Clean & Dry Additional Instructions: If you experience any of the following, contact your healthcare provider. * Bleeding that soaks a pad every hour for 2 hours * Fever 100.4 or higher * Unrelieved incision or abdominal pain * Swelling, redness, discharge or bleeding from your incision or episiotomy site * Your incision begins to separate * Problems urinating (including inability to urinate or burning while urinating). * Visual changes * Severe headache * Flu-like symptoms * Pain or redness in one of both of your breasts * Pain, warmth, tenderness or swelling in your legs, especially the calf area * Frequent nausea and vomiting * Symptoms of depression or anxiety If you experience any of the following, call 911 or go to the nearest Emergency Room. * Chest pain * Problems breathing * Seizure activity * Partial or complete paralysis of a body part, slurred speech, weakness or drooping of the face, or a sudden inability to walk or hold your balance Allergies/Adverse Reactions: Allergies No Known Allergies Allergy (Verified 03/12/20 15:01) Medications to take at Discharge vitamin#30 30 mg iron-10 mg iron-folic acid 1 mg-omg3 capsule 1 cap PO DAILY cap 09/16/18 nifedipine 30 mg tablet,extended release 24 hr 30 mg PO DAILY #30 tab 01/05/20 Hydrocodone/Acetaminophen [[place] 5-325 Tablet] 1 each PO Q6H PRN PRN 4 Days #15 tablet 03/14/20 Labetalol [Trandate (Beta Price)] 100 mg PO BID #60 tab 03/14/20 Naproxen [Naprosyn] 250 - 500 mg PO Q8H PRN PRN #30 tab 03/14/20 The following prescriptions were given: Naproxen [Naprosyn] 250 - 500 mg PO Q8H PRN PRN #30 tab PRN Reason: MILD PAIN Transmission Status: Pending to [id number] Hydrocodone/Acetaminophen [[place] 5-325 Tablet] 1 each PO Q6H PRN PRN 4 Days #15 tablet PRN Reason: Pain Transmission Status: Received by [id number] Labetalol [Trandate (Beta Price)] 100 mg PO BID #60 tab Transmission Status: Pending to [id number] Follow-Up: Call to make an appointment with your doctor for an incision check in 1-2 weeks. You will also need a 6 week post- follow up appointment. Test results from this visit will be discussed in further detail at your follow- up appointment, if applicable. Please Follow Up With: Bre Foster MD - Call to make an appointment for an incision check in 1-2 [phone] When: You will need a post- check in 6 weeks. Primary Care Physician: Care Physician,No Primary [Primary Care Provider] -
--- NOTE | 2020-03-14 07:54 | PCM.PN.OB ---
Patient Problems: Active and Suspected Problems (Last Reviewed 03/12/20 @ 15:02 by Emily Jin) Preeclampsia, severe (Acute) Subjective: doing well no complaints pain controlled no CP SOB N V ambulating well tolerating po lochia moderate, going well - Physical Exam Vitals/I&O's: Vital Signs Temp Pulse Resp BP Pulse Ox 98.7 F 108 H 18 126/64 H 96 03/14/20 02:36 03/14/20 02:36 03/14/20 02:36 03/14/20 02:36 03/14/20 02:36 Oxygen Delivery Method Room Air Weight: 284 lb 6.341 oz Body Mass Index (BMI) 55.5 Intake and Output for Last 24 Hours 03/12/20 03/13/20 03/14/20 23:59 23:59 23:59 Intake Total 2029.89 / 2029.89 2295.42 / 2295.42 Output Total 840 / 840 1410 / 1410 Balance 1189.89 / 1189.89 885.42 / 885.42 General: Alert, Oriented x3 Current Medications Acetaminophen (Tylenol) 1,000 mg PO Q8H PRN PRN Reason: Pain Score 1-3/10 Last Admin: 03/13/20 15:53 Dose: 1,000 mg Documented by: Hydrocodone Bitart/Acetaminophen ([place] 5mg-325mg) 1 - 2 tablet PO Q4H PRN PRN PRN Reason: Pain Score 4-10/10 Bisacodyl (Dulcolax) 10 mg RECTAL UD PRN PRN Reason: If no BM Enoxaparin Sodium (Lovenox) 40 mg SC BID [place] Last Admin: 03/13/20 21:07 Dose: 40 mg Documented by: Hydrocortisone (Hytone) 1 applic TOPICAL TID PRN PRN; Protocol PRN Reason: Discomfort Hydromorphone HCl (Dilaudid Inj) 0.5 mg IV Q1H PRN PRN PRN Reason: Pain Score 1-5/10 Last Admin: 03/13/20 21:06 Dose: 0.5 mg Documented by: Hydromorphone HCl (Dilaudid Inj) 1 mg IV Q1H PRN PRN PRN Reason: Pain Score 6-10/10 Lactated Ringer's () 1,000 mls @ 100 mls/hr IV .Q10H [facility] Last Infusion: 03/13/20 15:57 Dose: Infused Documented by: Naloxone HCl 4 mg/ Dextrose 504 mls @ 0 mls/hr IV .Q0M PRN; Protocol PRN Reason: Respiratory depression Ketorolac Tromethamine (Toradol (Bkc)) 30 mg IV Q6 [facility] Stop: 03/14/20 18:01 Last Admin: 03/14/20 06:07 Dose: 30 mg Documented by: Labetalol HCl (Trandate) 100 mg PO BID [facility] Last Admin: 03/13/20 21:06 Dose: 100 mg Documented by: Labetalol HCl (Trandate) 20 mg IV Q10M PRN PRN PRN Reason: Elevated BP Naloxone HCl (Narcan) 0.02 mg IV Q1M PRN PRN Reason: RR <10 and pt unresponsive Naproxen (Naprosyn) 250 - 500 mg PO Q8H PRN PRN PRN Reason: Pain Score 1-3/10 Nifedipine (Procardia Xl) 30 mg PO DAILY [facility] Last Admin: 03/13/20 11:01 Dose: 30 mg Documented by: Ondansetron HCl (Zofran) 4 mg IV Q4H PRN PRN PRN Reason: Nausea Multivit/Folic Acid/Iron (Prenatabs Fa) 1 tablet PO DAILY@1200 [place] Last Admin: 03/13/20 12:52 Dose: 1 tablet Documented by: Prochlorperazine Edisylate (Compazine Iv) 10 mg IV Q6H PRN PRN PRN Reason: NAUSEA Senna/Docusate Sodium (Senokot-S, Arin-Colace) 0 tablet PO DAILY PRN PRN Reason: Constipation Last Admin: 03/13/20 15:53 Dose: 1 tablet Documented by: Simethicone (Mylicon) 80 mg PO PCHS PRN PRN Reason: Indigestion/stomach pain Sodium Chloride () 5 - 15 ml IV UD PRN PRN Reason: SALINE FLUSH Last Admin: 03/14/20 06:07 Dose: 10 ml Documented by: Sodium Chloride ([place] Nasal [place]) 2 spray NASAL Q1H PRN PRN PRN Reason: NASAL DRYNESS Last Admin: 03/13/20 01:37 Dose: 2 spray Documented by: Medical Necessity - Tobacco Use Smoking Status: Never smoker Assessment/Plan All Active Problems (Last Reviewed 03/12/20 @ 15:02 by Emily Jin) Preeclampsia, severe (Acute) Hypertension affecting (Acute) (Acute) Obesity affecting (Acute) History of pre-eclampsia in prior , currently (Acute) Supervision of high risk , antepartum (Acute) AMA (advanced maternal age) multigravida 35+ (Acute) H/O: (Acute) screening encounter (Resolved) BMI 40.0-44.9, adult (Resolved) Elevated blood pressure affecting in third trimester, antepartum (Resolved) Sinusitis (Resolved) Subconjunctival hemorrhage of right eye (Resolved) s/p LTCS PPD # 2 1. routine post care 2. breast feeding- support given 3. rh positive 4. rubella immune preeclampsia with severe features- all bps normal, on labetalol and procardia, labs stable
--- NOTE | 2020-03-14 08:40 | NURSING ---
no vaccines to record
[2020-03-14] MEDS: Enoxaparin 40 MG/0.4 ML Syringe SC (09:33)
[2020-03-14] MEDS: Labetalol 100 MG Tablet PO (09:33)
[2020-03-14] MEDS: NIFEdipine 30 MG Tablet PO (09:33)
[2020-03-14] MEDS: Prenatal Vits Tablet 1 TABLET PO (12:29)
[2020-03-14] MEDS: HYDROcodone Bitartrate/Apap 5/325 Tablet PO (14:54)
== END 2020-03-14 15:55 | disposition home or self-care (01) | DRG 786 ==
LOC: WPOUT 17:25 → WP 17:25
PROVIDERS: Admitting Provider Obstetrics & Gynecology; Visit Provider Obstetrics & Gynecology
DX: O34.211 Maternal care for low transverse scar from previous cesarean delivery (principal); O60.14X0 Preterm labor third trimester with preterm delivery third trimester, not applicable or unspecified; O32.1XX0 Maternal care for breech presentation, not applicable or unspecified; O14.14 Severe pre-eclampsia complicating childbirth; O99.214 Obesity complicating childbirth; E66.01 Morbid (severe) obesity due to excess calories; Z37.0 Single live birth; Z3A.36 36 weeks gestation of pregnancy; Z87.59 Personal history of other complications of pregnancy, childbirth and the puerperium
CPT/HCPCS: 36415; 59025; 59050; 76816; 82565; 82570; 84156; 84450; 84460; 84550; 85027; 85610; 85730; 86850; 86900; 86901; 87081; 99218; J7120; A4216; G0378; J2405